=== PATIENT | female | born 1935 | race Caucasian/White ===

== ENCOUNTER → 2016-07-24 | Outpatient (CLI) | payer MEDICARE, BC ==
--- NOTE | 2016-07-24 13:49 | BD ---
EXAMINATION TYPE: MG DEXA axial skeleton. DATE OF EXAM: 07/24/2016 1:02 PM COMPARISON: NONE CLINICAL HISTORY: Height: 5FT 1 1/2 IN Weight: 142 FRAX RISK QUESTIONS: Alcohol (3 or more units per day): NO Family History (Parent hip fracture): NO Glucocorticoids (More than 3mos): NO (Ex: prednisone, prednisolone, methylprednisolone, dexamethasone, and hydrocortisone). History of Fracture in Adulthood: YES Secondary Osteoporosis: 1. Type 1 Diabetes: NO 2. Hyperthyroidism: NO 3. Menopause before 45: YES 4. Malnutrition: NO 5. Chronic liver disease: NO Rheumatoid Arthritis: NO Current Tobacco Use: NO RISK FACTORS HISTORY OF: Other Fractures since Age 50: YES COCCYX When: IN HER 70'S Family History of Osteoporosis: NO Active: YES Postmenopausal woman: AGE 45 MEDICATIONS: Additional Medications: CALCIUM, BLOOD PRESSURE MEDS, MEDS FOR CONGESTIVE HEART FAILURE, ANTI DEPRESS ANT, Additional History: EXAM MEASUREMENTS: Bone mineral densitometry was performed using the [employer] ([employer]) System. Bone mineral density as measured about the Lumbar spine is: ----- L1-L4(G/cm2): 0.990 T Score Values are as follows: ----- L2: -1.6 ----- L3: -2.0 ----- L4: -1.9 ----- L1-L4: -1.6 Bone mineral density has: Decreased -6.8% since study of: 2010 Bone mineral density about the R hip (g/cm2): 0.693 Bone mineral density about the L hip (g/cm2): 0.618 T Score values are as follows: -----R Neck: -2.5 -----L Neck: -3.0 -----R Intertrochanter: -2.2 -----L Intertrochanter: -2.5 Bone mineral density has: Decreased -16.8% since study of: 2010 IMPRESSION: Osteoporosis (T Score less than -2.5) as noted by T Score values at the There is increased fracture risk and therapy is usually indicated based on age. Re-Screen 1-2 years. LEFT FEMUR NOTE: T-SCORE=SD OF THE YOUNG ADULT MEAN.
--- NOTE | 2016-07-25 11:58 | MM ---
Reason for exam: screening (asymptomatic). Last mammogram was performed 4 years and 5 months ago. History: Patient is postmenopausal. Took hormonal contraceptives for 2 years beginning at age 30. Took estrogen for 8 months beginning at age 47. Took progesterone for 8 months beginning at age 47. Physical Findings: A clinical breast exam by your physician is recommended on an annual basis and results should be correlated with mammographic findings. MG 3D Screening Mammo W/Cad Bilateral CC and MLO view(s) were taken. Prior study comparison: March 04, 2012, bilateral digital screening mammo w/CAD. October 22, 2010, bilateral digital screening mammo w/CAD. October 20, 2009, bilateral digital screening mammogram. There are scattered fibroglandular densities. No significant changes when compared with prior studies. ASSESSMENT: Negative, BI-RAD 1 RECOMMENDATION: Routine screening mammogram of both breasts in 1 year.
== END | disposition home or self-care (01) ==
LOC: RADBDWWP 12:28
PROVIDERS: ATTEND Internal Medicine
DX: Z12.31 Encounter for screening mammogram for malignant neoplasm of breast (principal); M81.0 Age-related osteoporosis without current pathological fracture
CPT/HCPCS: 77080; 77063; G0202

== ENCOUNTER → 2016-08-14 | Outpatient (CLI) | payer MEDICARE, BC ==
[2016-08-14 10:19] LABS: CHCM 32.4; HCT 43.5 % (34.0-46.0); HDW 2.32; HGB 14.3 gm/dL (11.4-16.0); MCH 32.7 pg (25.0-35.0); MCV 99.3 fL (80.0-100.0); RBC 4.38 m/uL (3.80-5.40); RDW 13.4 % (11.5-15.5); WBC 5.2 k/uL (3.8-10.6)
[2016-08-14 10:43] LABS: ALT 49 U/L (9-52); AST 22 U/L (14-36); Alkaline Phosphatase 74 U/L (38-126); Anion Gap 9 mmol/L; Blood Urea Nitrogen 16 mg/dL (7-17); Carbon Dioxide 25 mmol/L (22-30); Chloride 108 mmol/L (98-107); Glucose 110 mg/dL (74-99); HDL Cholesterol 47 mg/dL (40-60); Non-African American GFR(MDRD) >60 (>60 ml/min/1.73 sqM); Potassium 3.9 mmol/L (3.5-5.1); Sodium 142 mmol/L (137-145); Total Bilirubin 0.7 mg/dL (0.2-1.3); Total Protein 6.8 g/dL (6.3-8.2); Triglycerides 301 mg/dL (<150)
[2016-08-14 10:57] LABS: Cholesterol 358 mg/dL (<200)
== END | disposition home or self-care (01) ==
LOC: LABWHC1 09:35
PROVIDERS: ATTEND Internal Medicine
DX: D64.9 Anemia, unspecified (principal); E03.9 Hypothyroidism, unspecified; B87.9 Myiasis, unspecified; R79.9 Abnormal finding of blood chemistry, unspecified
CPT/HCPCS: 36415; 80053; 80061; 84443; 85027

== ENCOUNTER 2017-01-08 17:17 | Emergency (ER) | payer MEDICARE, BC ==
--- NOTE | 2017-01-08 19:26 | ED ---
General Adult HPI - General Chief complaint: Recheck/Abnormal Lab/Rx Stated complaint: high blood pressure Time Seen by Provider: 01/08/17 18:48 Source: patient Mode of arrival: wheelchair Limitations: no limitations - History of Present Illness Initial comments: Patient is an 81-year-old female presents with a chief complaint of hypertension. Patient states that she has a history of hypertension and is followed by her primary care doctor for this. She was recently enrolled in home physical therapy, and today was her first day. They were supposed to come twice a day however multiple times today they were unable to hold her session because her blood pressure was over 180 systolic. Patient states that she is not having symptoms. Patient does however admit that the reason for physical therapy was because she is having episodes of lightheadedness, sweating. She states that she's been seen by her primary care physician for this already. Patient currently denies any symptomatology. Initial blood pressure is 144/88, however repeat at bedside is 197/90. - Related Data Home Medications Medication Instructions Recorded Confirmed ALPRAZolam [ALPRAZolam] 0.25 mg PO TID PRN 09/24/13 08/31/14 Ascorbic Acid [Vitamin C] 500 mg PO DAILY 09/24/13 08/31/14 Aspirin EC [Ecotrin] 81 mg PO DAILY 09/24/13 08/31/14 Multivitamins, Thera [Multivitamin] 1 each PO DAILY 09/24/13 08/31/14 Potassium Chloride [K-Tab] 10 meq PO BID 09/24/13 08/31/14 Spironolactone [Aldactone] 25 mg PO DAILY 09/24/13 08/31/14 Sertraline [Zoloft] 100 mg PO DAILY 02/27/14 08/31/14 amLODIPine [Norvasc] 5 mg PO BID 02/27/14 08/31/14 Losartan Potassium [Losartan 50 mg PO [facility] 08/17/14 08/31/14 Potassium] Temazepam [Temazepam] 1 tab PO 08/17/14 08/31/14 Cholecalciferol [Vitamin D3] 1,000 unit PO DAILY 08/19/14 08/24/14 Pravastatin Sodium [Pravachol] 80 mg PO 08/19/14 08/31/14 rOPINIRole HCL [Requip] 1 mg PO 08/19/14 08/31/14 traZODone HCL 300 mg PO HS 08/19/14 08/31/14 Allergies Allergy/AdvReac Type Severity Reaction Status Date / Time Sulfa (Sulfonamide Allergy Unknown Verified 01/08/17 17:39 Antibiotics) zolpidem tartrate AdvReac Confusion Verified 01/08/17 17:39 [From Bernard] Review of Systems ROS Statement: Those systems with pertinent positive or pertinent negative responses have been documented in the HPI. ROS Other: All systems not noted in ROS Statement are negative. Constitutional: Denies: fever Eyes: Denies: vision change ENT: Denies: congestion Respiratory: Denies: cough Cardiovascular: Denies: chest pain Endocrine: Reports: fatigue Gastrointestinal: Denies: abdominal pain, nausea, vomiting Genitourinary: Denies: dysuria Musculoskeletal: Denies: arthralgia Skin: Denies: rash Neurological: Denies: headache Past Medical History Past Medical History: Heart Failure, CVA/TIA, Hyperlipidemia, Hypertension, Thyroid Disorder Additional Past Medical History / Comment(s): SEPSIS, CDIFF, SHINGLES in 2008, FX TAILBONE,CHF, HYPERCHOLESTREMIA History of Any Multi-Drug Resistant Organisms: C-DIFF Date of last positivie culture/infection: 2009 MDRO Source:: STOOL Past Surgical History: Appendectomy, Cholecystectomy, Hysterectomy Additional Past Surgical History / Comment(s): CATARACTS, colonoscopy Past Anesthesia/Blood Transfusion Reactions: No Reported Reaction Past Psychological History: Anxiety, Depression Smoking Status: Never smoker Past Alcohol Use History: None Reported Past Drug Use History: None Reported - Past Family History Father Family Medical History: Coronary Artery Disease (CAD), Myocardial Infarction (ID ) Son(s) Family Medical History: Cancer General Exam Limitations: no limitations General appearance: alert, in no apparent distress Head exam: Present: atraumatic, normocephalic Eye exam: Present: normal appearance, PERRL ENT exam: Present: normal exam, mucous membranes moist Respiratory exam: Present: normal lung sounds bilaterally Cardiovascular Exam: Present: regular rate, normal rhythm, normal heart sounds GI/Abdominal exam: Present: soft. Absent: distended, tenderness Rectal exam: Present: deferred Extremities exam: Present: normal inspection Back exam: Present: normal inspection Neurological exam: Present: alert, oriented X3, CN II-XII intact Psychiatric exam: Present: normal affect, normal mood Course Vital Signs 01/08/17 01/08/17 17:36 20:27 Temperature 99.0 F Pulse Rate 75 Respiratory 20 Rate Blood Pressure 142/88 172/105 O2 Sat by Pulse 99 Oximetry Medical Decision Making - Medical Decision Making Patient presents for evaluation of hypertension. She was sent at the request of her physical therapist. Patient is asymptomatic currently. Blood pressure at bedside is 197/90, patient states that she has not had thorough lab workup for her episodes of shaking and sweatiness, therefore she will have basic and cardiac workup here today. 8:39 PM Lab evaluation of this patient including cardiac profile is within normal limits. There is no evidence of end organ damage. Currently, the patient is still hypertensive however her blood pressures improved to 174 over 90s. She was given a 5 mg dose of Norvasc. I discussed the plan with her, I would like to increase her Norvasc from 5 mg to 10 mg daily and have her follow-up with her primary care doctor and one or 2 days. Patient and her family are agreeable with this plan. I will recheck her blood pressure 1 more time however if she is still asymptomatic, the patient will be discharged home. All of the patient's questions are answered to the best of my ability, she is stable for discharge. - Lab Data Result diagrams: 01/08/17 19:30 01/08/17 19:30 Lab Results 01/08/17 01/08/17 01/08/17 Range/Units 19:30 19:30 19:30 WBC 5.5 (3.8-10.6) k/uL RBC 4.76 (3.80-5.40) m/uL Hgb 15.0 (11.4-16.0) gm/dL Hct 46.2 H (34.0-46.0) % MCV 97.0 (80.0-100.0) fL MCH 31.6 (25.0-35.0) pg MCHC 32.6 (31.0-37.0) g/dL RDW 13.1 (11.5-15.5) % Plt Count 196 (150-450) k/uL Neutrophils % 65 % Lymphocytes % 23 % Monocytes % 7 % Eosinophils % 2 % Basophils % 1 % Neutrophils # 3.6 (1.3-7.7) k/uL Lymphocytes # 1.3 (1.0-4.8) k/uL Monocytes # 0.4 (0-1.0) k/uL Eosinophils # 0.1 (0-0.7) k/uL Basophils # 0.1 (0-0.2) k/uL Sodium 139 (137-145) mmol/L Potassium 4.0 (3.5-5.1) mmol/L Chloride 104 (98-107) mmol/L Carbon Dioxide 24 (22-30) mmol/L Anion Gap 11 mmol/L BUN 13 (7-17) mg/dL Creatinine 0.60 (0.52-1.04) mg/dL Est GFR (MDRD) Af Amer >60 (>60 ml/min/1.73 sqM) Est GFR (MDRD) Non-Af >60 (>60 ml/min/1.73 sqM) Glucose 119 H (74-99) mg/dL Calcium 9.2 (8.4-10.2) mg/dL Troponin I (0.000-0.034) ng/mL NT-Pro-B Natriuret Pep 168 pg/mL 01/08/17 Range/Units 19:30 WBC (3.8-10.6) k/uL RBC (3.80-5.40) m/uL Hgb (11.4-16.0) gm/dL Hct (34.0-46.0) % MCV (80.0-100.0) fL MCH (25.0-35.0) pg MCHC (31.0-37.0) g/dL RDW (11.5-15.5) % Plt Count (150-450) k/uL Neutrophils % % Lymphocytes % % Monocytes % % Eosinophils % % Basophils % % Neutrophils # (1.3-7.7) k/uL Lymphocytes # (1.0-4.8) k/uL Monocytes # (0-1.0) k/uL Eosinophils # (0-0.7) k/uL Basophils # (0-0.2) k/uL Sodium (137-145) mmol/L Potassium (3.5-5.1) mmol/L Chloride (98-107) mmol/L Carbon Dioxide (22-30) mmol/L Anion Gap mmol/L BUN (7-17) mg/dL Creatinine (0.52-1.04) mg/dL Est GFR (MDRD) Af Amer (>60 ml/min/1.73 sqM) Est GFR (MDRD) Non-Af (>60 ml/min/1.73 sqM) Glucose (74-99) mg/dL Calcium (8.4-10.2) mg/dL Troponin I <0.012 (0.000-0.034) ng/mL NT-Pro-B Natriuret Pep pg/mL Disposition Clinical Impression: Hypertension Disposition: HOME SELF-CARE Condition: Good Instructions: Hypertension (ED) Additional Instructions: Increase your home dose of Norvasc from 5 mg to 10 mg daily. Follow-up with your primary care physician in one to 2 days. Referrals: Bj Mo MD [Primary Care Provider] - 1-2 days
[2017-01-08 19:42] LABS: Basophils # (A) 0.1 k/uL (0-0.2); Basophils % (A) 1 %; CHCM 32.1; Eosinophils # (A) 0.1 k/uL (0-0.7); Eosinophils % (A) 2 %; HCT 46.2 % (34.0-46.0); Luc # (Auto) 0.11; Luc % (Auto) 2; Lymphocytes # (A) 1.3 k/uL (1.0-4.8); Lymphocytes % (A) 23 %; MCH 31.6 pg (25.0-35.0); MCHC 32.6 g/dL (31.0-37.0); Mean Platelet Volume 9.4; Monocytes # (A) 0.4 k/uL (0-1.0); Monocytes % (A) 7 %; Neutrophils # (A) 3.6 k/uL (1.3-7.7); Neutrophils % (A) 65 %; RBC 4.76 m/uL (3.80-5.40); RDW 13.1 % (11.5-15.5); WBC 5.5 k/uL (3.8-10.6); WBC (Perox) 5.51
[2017-01-08 20:01] LABS: Anion Gap 11 mmol/L; Blood Urea Nitrogen 13 mg/dL (7-17); Calcium 9.2 mg/dL (8.4-10.2); Carbon Dioxide 24 mmol/L (22-30); Chloride 104 mmol/L (98-107); Glucose 119 mg/dL (74-99); Non-African American GFR(MDRD) >60 (>60 ml/min/1.73 sqM); Sodium 139 mmol/L (137-145)
[2017-01-08] MEDS ORDERED: amLODIPine 5 MG TAB PO STA (20:03)
[2017-01-08 21:43] VITALS: BP 198/90; PULSE 87; RESP 16; TEMP 98.3
== END 2017-01-08 21:41 | disposition home or self-care (01) ==
LOC: EC 17:17
DX: I10 Essential (primary) hypertension (principal); R42 Dizziness and giddiness; R61 Generalized hyperhidrosis; I50.9 Heart failure, unspecified; E78.5 Hyperlipidemia, unspecified; E07.9 Disorder of thyroid, unspecified; Z86.73 Personal history of transient ischemic attack (TIA), and cerebral infarction without residual deficits; F32.9 Major depressive disorder, single episode, unspecified; F41.9 Anxiety disorder, unspecified; Z79.82 Long term (current) use of aspirin; Z79.899 Other long term (current) drug therapy; Z88.2 Allergy status to sulfonamides; Z88.8 Allergy status to other drugs, medicaments and biological substances
CPT/HCPCS: 36415; 80048; 83880; 84484; 85025; 99283

== ENCOUNTER → 2017-08-21 | Outpatient (CLI) | payer MEDICARE, BC ==
[2017-08-21 10:28] LABS: HCT 40.6 % (34.0-46.0); HGB 13.3 gm/dL (11.4-16.0); MCH 31.1 pg (25.0-35.0); MCHC 32.7 g/dL (31.0-37.0); MCV 95.1 fL (80.0-100.0); Mean Platelet Volume 8.7; Platelet Count 241 k/uL (150-450); RBC 4.27 m/uL (3.80-5.40); RDW 13.3 % (11.5-15.5); WBC 8.8 k/uL (3.8-10.6)
[2017-08-21 10:58] LABS: Albumin 3.9 g/dL (3.5-5.0); Phosphorus 4.1 mg/dL (2.5-4.5); Potassium 4.5 mmol/L (3.5-5.1); Total Bilirubin 0.3 mg/dL (0.2-1.3); Total Protein 6.2 g/dL (6.3-8.2)
[2017-08-21 16:13] LABS: Iron Saturation 17.58 (12.00-45.00)
[2017-08-21 16:15] LABS: Parathyroid Hormone Intact 49.1 pg/mL (14.0-72.0)
[2017-08-21 16:23] LABS: Vitamin D 25 Hydroxy 39.4 ng/mL (30.0-100.0)
[2017-08-21 16:25] LABS: Folate, Serum 11.3 ng/mL
[2017-08-21 18:49] LABS: Hemoglobin A1C 5.7 % (4.0-6.0)
== END | disposition home or self-care (01) ==
LOC: LABWHC1 09:11
PROVIDERS: ATTEND Nurse Practitioner Adult Health
DX: E78.5 Hyperlipidemia, unspecified (principal); I11.9 Hypertensive heart disease without heart failure; K21.9 Gastro-esophageal reflux disease without esophagitis; R53.83 Other fatigue; Z90.89 Acquired absence of other organs
CPT/HCPCS: 36415; 80053; 80061; 82306; 82607; 82746; 83036; 83540; 83550; 83735; 83970; 84100; 84443; 85027

== ENCOUNTER 2017-08-26 17:52 | Observation (INO) | payer MEDICARE, BC ==
--- NOTE | 2017-08-26 20:06 | ED ---
General Adult HPI - General Chief complaint: Neuro Symptoms/Deficit Stated complaint: Possible TIA Time Seen by Provider: 08/26/17 19:29 Source: patient, RN notes reviewed, old records reviewed Mode of arrival: wheelchair Limitations: no limitations - History of Present Illness Initial comments: 81-year-old female presenting for evaluation of confusion. Patient states that earlier in the day she had trouble remembering phone numbers and names of her children. She states she had trouble finding words at this time. This began around noon today. She was aware of this deficit and this was new for her. She denied any weakness or numbness or tingling. No vision changes. No headache. No chest pain or shortness of breath. No abdominal pain nausea vomiting. No recent change in medications. No dysuria or hematuria. - Related Data Home Medications Medication Instructions Recorded Confirmed Aspirin EC [Ecotrin] 81 mg PO DAILY 09/24/13 08/26/17 amLODIPine [Norvasc] 5 mg PO HS 02/27/14 08/26/17 Losartan Potassium [Losartan 25 mg PO QAM 08/17/14 08/26/17 Potassium] Pravastatin Sodium [Pravachol] 80 mg PO HS 08/19/14 08/26/17 rOPINIRole HCL [Requip] 1 mg PO HS 08/19/14 08/26/17 HYDROcodone/APAP 7.5-325MG [[place] 1 tab PO Q4H PRN 04/01/17 08/26/17 7.5-325] Morphine Sulfate ER [Ms Contin 15 mg PO BID 04/01/17 08/26/17 15Mg] traZODone HCL 300 mg PO HS 04/01/17 08/26/17 ALPRAZolam [Xanax] 0.5 mg PO HS PRN 08/26/17 08/26/17 DULoxetine HCL [Cymbalta] 60 mg PO DAILY 08/26/17 08/26/17 Furosemide [Lasix] 20 mg PO MOWEFR 08/26/17 08/26/17 Spironolactone 50 mg PO DAILY 08/26/17 08/26/17 Allergies Allergy/AdvReac Type Severity Reaction Status Date / Time Sulfa (Sulfonamide Allergy Unknown Verified 08/26/17 19:40 Antibiotics) zolpidem tartrate AdvReac Confusion Verified 05/22/18 19:40 [From Ambien] Review of Systems ROS Statement: Those systems with pertinent positive or pertinent negative responses have been documented in the HPI. ROS Other: All systems not noted in ROS Statement are negative. Past Medical History Past Medical History: Heart Failure, CVA/TIA, Hyperlipidemia, Hypertension, Thyroid Disorder Additional Past Medical History / Comment(s): SEPSIS, C DIFF 2009, SHINGLES in 2008, FX TAILBONE,CHF, "leakage of urine", past migraines, varicose veis, hiatal hernia, diverticular disease.anx/depression.recieved a flu vaccine this year -not sure of date and office closed at time of this admit. History of Any Multi-Drug Resistant Organisms: None Reported Date of last positivie culture/infection: 2009 MDRO Source:: STOOL Past Surgical History: Adenoidectomy, Appendectomy, Cholecystectomy, Heart Catheterization, Hysterectomy, Tonsillectomy Additional Past Surgical History / Comment(s): slick cataracts. (has total 3 sx on lt eye), colonoscopy/egd, heart cath 1996. Past Anesthesia/Blood Transfusion Reactions: No Reported Reaction Past Psychological History: Anxiety, Depression Smoking Status: Never smoker - Past Family History Mother Family Medical History: Diabetes Mellitus Additional Family Medical History / Comment(s): brain aneurysm Father Family Medical History: Coronary Artery Disease (CAD), Myocardial Infarction (HI ) Son(s) Family Medical History: Cancer General Exam Limitations: no limitations General appearance: alert, in no apparent distress Head exam: Present: atraumatic, normocephalic Eye exam: Present: normal appearance, PERRL, EOMI ENT exam: Present: normal exam Neck exam: Present: normal inspection. Absent: tenderness, meningismus Respiratory exam: Present: normal lung sounds bilaterally. Absent: respiratory distress, wheezes Cardiovascular Exam: Present: regular rate, normal rhythm GI/Abdominal exam: Present: soft. Absent: distended, tenderness, guarding Extremities exam: Present: normal inspection, full ROM Neurological exam: Present: alert, oriented X3, CN II-XII intact. Absent: motor sensory deficit (NIH 0) Psychiatric exam: Present: normal affect, normal mood Skin exam: Present: warm, dry, intact. Absent: cyanosis, diaphoretic Course Vital Signs 08/26/17 08/26/17 08/26/17 18:18 19:40 19:55 Temperature 100.3 F H Pulse Rate 94 92 92 Respiratory 18 18 18 Rate Blood Pressure 148/75 117/74 137/67 O2 Sat by Pulse 92 L 94 L 94 L Oximetry 08/26/17 08/26/17 08/26/17 20:10 20:25 20:55 Temperature Pulse Rate 92 88 86 Respiratory 18 18 18 Rate Blood Pressure 135/69 131/74 142/69 O2 Sat by Pulse 93 L 95 Oximetry 08/26/17 21:25 Temperature Pulse Rate 85 Respiratory 18 Rate Blood Pressure 141/74 O2 Sat by Pulse 94 L Oximetry EKG Findings - EKG Comments: EKG Findings:: EKG: Normal sinus rhythm, rate of 90, NJ interval 166, QRS duration 84, QTC [address] segment elevation or depression Medical Decision Making - Medical Decision Making 81-year-old female presenting with episode of confusion and word finding difficulty. Patient's neurologic exam is nonfocal on initial presentation. Symptoms resolved. Head CT obtained, is negative for acute intracranial pathology, no intracranial hemorrhage. Chest x-ray focal airspace disease. CBC CMP are unremarkable. Urinalysis shows small leukocyte esterase and 5 WBCs. This does not explain her confusion. She will be admitted for concern of TIA. Neurology placed on consult. Case discussed with Dr. Vasquez will accept admission. - Lab Data Result diagrams: 08/26/17 20:30 08/26/17 20:30 Lab Results 08/26/17 08/26/17 08/26/17 Range/Units 20:30 20:30 20:30 WBC 8.9 (3.8-10.6) k/uL RBC 4.52 (3.80-5.40) m/uL Hgb 13.8 (11.4-16.0) gm/dL Hct 42.1 (34.0-46.0) % MCV 93.2 (80.0-100.0) fL MCH 30.6 (25.0-35.0) pg MCHC 32.8 (31.0-37.0) g/dL RDW 13.2 (11.5-15.5) % Plt Count 265 (150-450) k/uL Neutrophils % 72 % Lymphocytes % 19 % Monocytes % 5 % Eosinophils % 2 % Basophils % 1 % Neutrophils # 6.4 (1.3-7.7) k/uL Lymphocytes # 1.7 (1.0-4.8) k/uL Monocytes # 0.4 (0-1.0) k/uL Eosinophils # 0.2 (0-0.7) k/uL Basophils # 0.1 (0-0.2) k/uL PT (9.0-12.0) sec INR (<1.2) APTT (22.0-30.0) sec Sodium 140 (137-145) mmol/L Potassium 4.3 (3.5-5.1) mmol/L Chloride 99 (98-107) mmol/L Carbon Dioxide 27 (22-30) mmol/L Anion Gap 14 mmol/L BUN 16 (7-17) mg/dL Creatinine 0.80 (0.52-1.04) mg/dL Est GFR (CKD-EPI)AfAm 80 (>60 ml/min/1.73 sqM) Est GFR (CKD-EPI)NonAf 70 (>60 ml/min/1.73 sqM) Glucose 119 H (74-99) mg/dL Plasma Lactic Acid Yefri (0.7-2.0) mmol/L Calcium 9.5 (8.4-10.2) mg/dL Total Bilirubin 0.5 (0.2-1.3) mg/dL AST 34 (14-36) U/L ALT 29 (9-52) U/L Alkaline Phosphatase 78 (38-126) U/L Total Creatine Kinase 45 (30-135) U/L CK-MB (CK-2) <0.2 (0.0-2.4) ng/mL CK-MB (CK-2) Rel Index Troponin I <0.012 (0.000-0.034) ng/mL Total Protein 6.8 (6.3-8.2) g/dL Albumin 4.2 (3.5-5.0) g/dL Urine Color Urine Appearance (Clear) Urine pH (5.0-8.0) Ur Specific Catarina (1.001-1.035) Urine Protein (Negative) Urine Glucose (UA) (Negative) Urine Ketones (Negative) Urine Blood (Negative) Urine Nitrite (Negative) Urine Bilirubin (Negative) Urine Urobilinogen (<2.0) mg/dL Ur Leukocyte Esterase (Negative) Urine RBC (0-5) /hpf Urine WBC (0-5) /hpf Ur Squamous Epith Cells (0-4) /hpf Urine Mucus (None) /hpf 08/26/17 08/26/17 08/26/17 Range/Units 20:30 20:30 21:00 WBC (3.8-10.6) k/uL RBC (3.80-5.40) m/uL Hgb (11.4-16.0) gm/dL Hct (34.0-46.0) % MCV (80.0-100.0) fL MCH (25.0-35.0) pg MCHC (31.0-37.0) g/dL RDW (11.5-15.5) % Plt Count (150-450) k/uL Neutrophils % % Lymphocytes % % Monocytes % % Eosinophils % % Basophils % % Neutrophils # (1.3-7.7) k/uL Lymphocytes # (1.0-4.8) k/uL Monocytes # (0-1.0) k/uL Eosinophils # (0-0.7) k/uL Basophils # (0-0.2) k/uL PT 9.8 (9.0-12.0) sec INR 1.0 (<1.2) APTT 23.7 (22.0-30.0) sec Sodium (137-145) mmol/L Potassium (3.5-5.1) mmol/L Chloride (98-107) mmol/L Carbon Dioxide (22-30) mmol/L Anion Gap mmol/L BUN (7-17) mg/dL Creatinine (0.52-1.04) mg/dL Est GFR (CKD-EPI)AfAm (>60 ml/min/1.73 sqM) Est GFR (CKD-EPI)NonAf (>60 ml/min/1.73 sqM) Glucose (74-99) mg/dL Plasma Lactic Acid Yefri 1.1 (0.7-2.0) mmol/L Calcium (8.4-10.2) mg/dL Total Bilirubin (0.2-1.3) mg/dL AST (14-36) U/L ALT (9-52) U/L Alkaline Phosphatase (38-126) U/L Total Creatine Kinase (30-135) U/L CK-MB (CK-2) (0.0-2.4) ng/mL CK-MB (CK-2) Rel Index Troponin I (0.000-0.034) ng/mL Total Protein (6.3-8.2) g/dL Albumin (3.5-5.0) g/dL Urine Color Yellow Urine Appearance Clear (Clear) Urine pH 7.0 (5.0-8.0) Ur Specific [place] 1.013 (1.001-1.035) Urine Protein Negative (Negative) Urine Glucose (UA) Negative (Negative) Urine Ketones Negative (Negative) Urine Blood Negative (Negative) Urine Nitrite Negative (Negative) Urine Bilirubin Negative (Negative) Urine Urobilinogen <2.0 (<2.0) mg/dL Ur Leukocyte Esterase Small H (Negative) Urine RBC 1 (0-5) /hpf Urine WBC 5 (0-5) /hpf Ur Squamous Epith Cells 1 (0-4) /hpf Urine Mucus Rare H (None) /hpf Disposition Clinical Impression: Altered mental status, TIA (transient ischemic attack) Disposition: ADMITTED IP TO THIS [facility] Condition: Stable Is patient prescribed a controlled substance at d/c from ED?: No Referrals: Roxana Victor MD [Primary Care Provider] - 1-2 days Decision to Admit Reason: Admit from EC Decision Date: 08/26/17 Decision Time: 22:30
--- NOTE | 2017-08-26 20:28 | XR ---
EXAMINATION TYPE: XR chest 2V DATE OF EXAM: 08/26/2017 COMPARISON: 04/01/2017 HISTORY: Altered mental status TECHNIQUE: Frontal and lateral views of the chest are obtained. FINDINGS: There is no heart failure nor confluent pneumonic infiltrate. Thoracic aorta is atheromato us. There are chest leads. Diaphragm is normal. There is osteopenia. IMPRESSION: Atheromatous aorta. No active cardiac pulmonary disease. Improved inspiration compared t o old exam.
--- NOTE | 2017-08-26 20:30 | CT ---
EXAMINATION TYPE: CT brain wo con DATE OF EXAM: 08/26/2017 COMPARISON: 04/01/2017 HISTORY: Possible TIA. CT DLP: 1100 mGycm Automated exposure control for dose reduction was used. FINDINGS: There is cerebral cortical atrophy. There is no mass effect nor midline shift. There is no sign of in tracranial hemorrhage. There is no evidence of cerebral edema. The calvarium is intact. IMPRESSION: CEREBRAL ATROPHY. NO ACUTE INTRACRANIAL ABNORMALITY. NO CHANGE.
[2017-08-26 20:49] LABS: Basophils # (A) 0.1 k/uL (0-0.2); Basophils % (A) 1 %; Eosinophils # (A) 0.2 k/uL (0-0.7); Eosinophils % (A) 2 %; HCT 42.1 % (34.0-46.0); HGB 13.8 gm/dL (11.4-16.0); Lymphocytes # (A) 1.7 k/uL (1.0-4.8); Lymphocytes % (A) 19 %; MCH 30.6 pg (25.0-35.0); MCHC 32.8 g/dL (31.0-37.0); MCV 93.2 fL (80.0-100.0); Mean Platelet Volume 9.1; Monocytes # (A) 0.4 k/uL (0-1.0); Monocytes % (A) 5 %; Neutrophils # (A) 6.4 k/uL (1.3-7.7); Neutrophils % (A) 72 %; Platelet Count 265 k/uL (150-450); RBC 4.52 m/uL (3.80-5.40); RDW 13.2 % (11.5-15.5); WBC 8.9 k/uL (3.8-10.6)
[2017-08-26 20:56] LABS: Albumin 4.2 g/dL (3.5-5.0); Calcium 9.5 mg/dL (8.4-10.2); Creatine Kinase 45 U/L (30-135); Potassium 4.3 mmol/L (3.5-5.1); Total Bilirubin 0.5 mg/dL (0.2-1.3); Total Protein 6.8 g/dL (6.3-8.2)
[2017-08-26 21:09] LABS: Creatine Kinase MB <0.2 ng/mL (0.0-2.4); Troponin I <0.012 ng/mL (0.000-0.034)
[2017-08-26 21:22] LABS: Appearance,Urine Clear (Clear); Bilirubin,Urine Negative (Negative); Blood,Urine Negative (Negative); Color,Urine Yellow; Glucose,Urine (UA) Negative (Negative); Ketones,Urine Negative (Negative); Leukocyte Esterase,Urine Small (Negative); Mucus,Urine Rare /hpf; Nitrite,Urine Negative (Negative); Protein,Urine Negative (Negative); RBC,Urine 1 /hpf (0-5); Specific Gravity,Urine 1.013 (1.001-1.035); Squamous Epithelial Cell,Urine 1 /hpf (0-4); Urobilinogen,Urine <2.0 mg/dL (<2.0); WBC,Urine 5 /hpf (0-5)
[2017-08-26 21:32] LABS: Partial Thromboplastin Time 23.7 sec (22.0-30.0); Prothrombin Time 9.8 sec (9.0-12.0)
[2017-08-26] MEDS ORDERED: ASPIRIN 325 MG TAB PO STA (22:26)
[2017-08-27 03:50] LABS: Cholesterol 193 mg/dL (<200); HDL Cholesterol 49 mg/dL (40-60); LDL Cholesterol,Calculated 100 mg/dL (0-99); Triglycerides 219 mg/dL (<150)
[2017-08-27] MEDS ORDERED: FUROSEMIDE 20 MG TAB PO SCH (06:30)
--- NOTE | 2017-08-27 06:36 | P.HPIM ---
History of Present Illness H&P Date: 08/26/17 Chief Complaint: confusion 81 year old female with history of CVA/TIA, CHF, HTN. presented due to new symptoms of inability to find words and remember common things like phone numbers and names, this lasted for few hours around noon and then resolved completely. She denies any associated head injury, headaches, focal neurologic deficits like any weakness or numbness. she was concerned regarding a stroke and decided to come seeking medical advice. currently she feels completely fine. She denies any nausea, vomiting, SOB, coughing, chest pain, leg swelling, or any GI bleeding. Patient reports similar event back in March 2017, carotid ultrasound done at that time showed no significant stenosis patient symptoms resolved on their own. however she does not recall this event Review of Systems Pertinent positives and negatives as per HPI, all other systems were reviewed and negative. Past Medical History Past Medical History: Heart Failure, CVA/TIA, Hyperlipidemia, Hypertension, Thyroid Disorder Additional Past Medical History / Comment(s): SEPSIS, C DIFF 2009, SHINGLES in 2008, FX TAILBONE,CHF, "leakage of urine", past migraines, varicose veis, hiatal hernia, diverticular disease.anx/depression.recieved a flu vaccine this year -not sure of date and office closed at time of this admit. History of Any Multi-Drug Resistant Organisms: None Reported Date of last positivie culture/infection: 2009 MDRO Source:: STOOL Past Surgical History: Adenoidectomy, Appendectomy, Cholecystectomy, Heart Catheterization, Hysterectomy, Tonsillectomy Additional Past Surgical History / Comment(s): slick cataracts. (has total 3 sx on lt eye), colonoscopy/egd, heart cath 1996. Past Anesthesia/Blood Transfusion Reactions: No Reported Reaction Past Psychological History: Anxiety, Depression Smoking Status: Never smoker - Past Family History Mother Family Medical History: Diabetes Mellitus Additional Family Medical History / Comment(s): brain aneurysm Father Family Medical History: Coronary Artery Disease (CAD), Myocardial Infarction ([place] ) Son(s) Family Medical History: Cancer Medications and Allergies Home Medications Medication Instructions Recorded Confirmed Type Aspirin EC [Ecotrin] 81 mg PO DAILY 09/24/13 08/26/17 History amLODIPine [Norvasc] 5 mg PO HS 02/27/14 08/26/17 History Losartan Potassium [Losartan 25 mg PO QAM 08/17/14 08/26/17 History Potassium] Pravastatin Sodium [Pravachol] 80 mg PO HS 08/19/14 08/26/17 History rOPINIRole HCL [Requip] 1 mg PO HS 08/19/14 08/26/17 History HYDROcodone/APAP 7.5-325MG [[place] 1 tab PO Q4H PRN 04/01/17 08/26/17 History 7.5-325] Morphine Sulfate ER [Ms Contin 15 mg PO BID 04/01/17 08/26/17 History 15Mg] traZODone HCL 300 mg PO HS 04/01/17 08/26/17 History ALPRAZolam [Xanax] 0.5 mg PO HS PRN 08/26/17 08/26/17 History DULoxetine HCL [Cymbalta] 60 mg PO DAILY 08/26/17 08/26/17 History Furosemide [Lasix] 20 mg PO MOWEFR 08/26/17 08/26/17 History Spironolactone 50 mg PO DAILY 08/26/17 08/26/17 History Allergies Allergy/AdvReac Type Severity Reaction Status Date / Time Sulfa (Sulfonamide Allergy Unknown Verified 08/26/17 19:40 Antibiotics) zolpidem tartrate AdvReac Confusion Verified 08/26/17 19:40 [From Bernard] Physical Exam Vitals: Vital Signs Temp Pulse Pulse Resp BP BP Pulse Ox 08/27/17 03:55 74 16 112/59 93 L 08/27/17 01:55 72 16 131/57 97 08/27/17 00:55 99.1 F 76 16 119/56 95 08/26/17 23:55 74 18 111/63 96 08/26/17 23:27 80 16 108/56 95 08/26/17 22:55 99.1 F 74 18 108/56 95 08/26/17 21:55 82 18 132/74 94 L 08/26/17 21:25 85 18 141/74 94 L 08/26/17 20:55 86 18 142/69 95 08/26/17 20:25 88 18 131/74 93 L 08/26/17 20:10 92 18 135/69 08/26/17 19:55 92 18 137/67 94 L 08/26/17 19:40 92 18 117/74 94 L 08/26/17 18:18 100.3 F H 94 18 148/75 92 L Intake and Output 08/26/17 08/26/17 08/27/17 14:59 22:59 06:59 Other: Weight 68.039 kg Constitutional: No acute distress, conversant, pleasant Eyes: Anicteric sclerae, moist conjunctiva, no lid-lag Pupils equal round reactive to light ENMT: NC/AT Oropharynx clear, no erythema, or exudates Neck: Supple, FROM, no masses, or JVD No carotid bruits No thyromegaly Lungs: Clear to auscultation Clear to percussion Normal respiratory effort, no accessory muscle use Cardiovascular: Heart regular in rate and rhythm, No murmurs, gallops, or rubs No peripheral edema Abdominal: Soft Nontender, no guarding, rebound or rigidity Abdomen moving with respiration Normoactive bowel sounds No hepatomegaly, No splenomegaly No palpable mass No abdominal wall hernia noted Skin: Normal temperature, tone, texture, turgor No induration No subcutaneous nodules No rash, lesions No ulcers Extremities: No digital cyanosis No clubbing Pedal pulses intact and symmetrical Radial pulses intact and symmetrical No calf tenderness Psychiatric: Alert and oriented to person, place and time Appropriate affect fair judgment Neuro Muscles Strength 4/5 in all 4 extremities Sensation to light touch grossly present throughout Finger-nose intact Cranial nerves II-XII grossly intact No focal sensory deficits Lymphatics: no palpable cervical or supraclavicular , or inguinal lymph nodes Results CBC & Chem 7: 08/26/17 20:30 08/26/17 20:30 Labs: Abnormal Lab Results - Last 24 Hours (Table) 08/26/17 08/26/17 08/26/17 Range/Units 20:30 20:30 21:00 Glucose 119 H (74-99) mg/dL Triglycerides 219 H (<150) mg/dL LDL Cholesterol, Calc 100 H (0-99) mg/dL Ur Leukocyte Esterase Small H (Negative) Urine Mucus Rare H (None) /hpf Microbiology - Last 24 Hours (Table) 08/26/17 21:00 Urine Culture - Preliminary Urine,Voided Assessment and Plan Assessment: 81-year-old lady with history of CVA presented due to confusion and difficulty remembering, things. Patient admitted for workup of TIA Plan: #TIA with history of CVA Continue aspirin and statin CT of the head was negative Check carotid ultrasound Check 2-D echocardiogram Check vitamin B12 Check TSH Neurochecks Neurology consult #Hypertension currently controlled Continue home medications #CHF currently compensated Continue home medications #DVT prophylaxis Heparin subcu 3 times a day Preformed a thorough record review from recent hospitalization from March 2017 where she presented for garbled speech and workup did not reveal anything of significance including carotid ultrasound which showed no significant stenosis Surrogate decision-maker: patients daughter CODE STATUS:full code Discussed with: Patient, ER, RN Anticipated discharge: 48-[address]: home A total of 50 minutes was spent on the care of this complex patient more than 50 % of the time was spent in counseling and care coordination.
[2017-08-27] MEDS ORDERED: NALOXONE 0.4 MG/ML 1 ML VIAL IV PRN (06:57)
--- NOTE | 2017-08-27 08:27 | US ---
EXAMINATION TYPE: US carotid duplex BILAT DATE OF EXAM: 08/27/2017 COMPARISON: US 04/01/2017 CLINICAL HISTORY: Stenosis. Patient states she couldn't think clearly EXAM MEASUREMENTS: RIGHT: Peak Systolic Velocity (PSV) cm/sec ----- Right CCA: 52.6 ----- Right ICA: 90.5 ----- Right ECA: 64.6 ICA/CCA ratio: 1.7 RIGHT: End Diastole cm/sec ----- Right CCA: 8.7 ----- Right ICA: 23.2 ----- Right ECA: 6.3 LEFT: Peak Systolic Velocity (PSV) cm/sec ----- Left CCA: 54.1 ----- Left ICA: 76.2 ----- Left ECA: 48.3 ICA/CCA ratio: 1.4 LEFT: End Diastole cm/sec ----- Left CCA: 10.4 ----- Left ICA: 28.3 ----- Left ECA: 7.6 VERTEBRALS (direction of flow): Right Vertebral: Antegrade Left Vertebral: Antegrade Rhythm: Normal Tortuous vessels bilaterally. Mild amount of plaque visualized, no elevated velocities Grayscale, color Doppler, spectral Doppler imaging performed of the carotid arteries. Waveform analys is does not show significant stenosis of the proximal internal carotid arteries. IMPRESSION: No hemodynamic significant stenosis of the proximal internal carotid arteries bilaterall y by Doppler criteria, an indirect measurement of carotid stenosis
[2017-08-27 09:03] VITALS: RESP 16
[2017-08-27 09:11] VITALS: BMI 27.3
[2017-08-27] MEDS: DULoxetine HCL 60 MG CAPSULE.DR PO SCH (10:52)
[2017-08-27] MEDS: HEPARIN SODIUM,PORCINE 5,000 UNIT/ML 1 ML VIAL SQ SCH ×3 (10:52→23:31)
[2017-08-27] MEDS: LOSARTAN 25 MG TAB PO SCH (10:52)
[2017-08-27] MEDS: ASPIRIN 325 MG TAB PO SCH (10:52)
[2017-08-27] MEDS: SPIRONOLACTONE 25 MG TAB PO SCH (10:53)
[2017-08-27] MEDS: MORPHINE SULFATE ER 15 MG TABLET PO SCH ×2 (11:08→20:07)
--- NOTE | 2017-08-27 11:12 | ECHOF ---
Referral Reason:Thrombus MEASUREMENTS -------- HEIGHT: 157.5 cm WEIGHT: 68.0 kg BP: 112/59 IVSd: 1.0 cm (0.6 - 1.1) LVIDd: 3.0 cm (3.9 - 5.3) LVPWd: 1.2 cm (0.6 - 1.1) IVSs: 1.5 cm LVIDs: 1.5 cm LVPWs: 1.3 cm Ao Diam: 3.1 cm (2.0 - 3.7) AV Cusp: 1.6 cm (1.5 - 2.6) LA Diam: 2.9 cm (2.7 - 3.8) MV E Hima: 0.57 m/s MV DecT: 153 ms MV A Hima: 0.94 m/s MV E/A Ratio: 0.61 AR PHT: 353 ms RAP: 5.00 mmHg RVSP: 13.69 mmHg FINDINGS -------- Sinus rhythm. This was a technically difficult study with suboptimal views. The left ventricular size is normal. Left ventricular wall thickness is normal. Overall left vent ricular systolic function is normal with, an EF between 55 - 60 %. The right ventricle is normal in size and function. The left atrium is normal in size. The right atrium is normal in size. There is mild aortic regurgitation. The mitral valve leaflets are mildly thickened. There is trace mitral regurgitation. Trace tricuspid regurgitation present. The right ventricular systolic pressure, as measured by Dopp ler, is 13.69mmHg. Pulmonic valve appears structurally normal. The aortic root size is normal. The pericardium is normal. CONCLUSIONS -------- 1. Sinus rhythm. 2. This was a technically difficult study with suboptimal views. 3. The left ventricular size is normal. 4. Left ventricular wall thickness is normal. 5. Overall left ventricular systolic function is normal with, an EF between 55 - 60 %. 6. The right ventricle is normal in size and function. 7. The left atrium is normal in size. 8. The right atrium is normal in size. 9. There is mild aortic regurgitation. 10. The mitral valve leaflets are mildly thickened. 11. There is trace mitral regurgitation. 12. Trace tricuspid regurgitation present. 13. The right ventricular systolic pressure, as measured by Doppler, is 13.69mmHg. 14. Pulmonic valve appears structurally normal. 15. The aortic root size is normal. 16. The pericardium is normal. ANDROID SOFTWARE ENGINEER: Kelly Santiago RDCS
--- NOTE | 2017-08-27 12:40 | P.PN ---
Subjective Progress Note Date: 08/27/17 The patient is hard of hearing her son is present at bedside, apparently she resides in the assisted living facility. And presented here with confusion Trouble remembering numbers finding the right words to say. Again discussed with the son at bedside he does express some concern that the patient might not be taking her pills correctly. Reports that times there is either too much or too few pills in her pillbox and stated that she might forget to take a certain pill but then would remembering to take an increased dose. Patient reports a history of being on chronic narcotics for her lower back pain, reports being managed by pain management on morphine and [place] for several years, also taking Xanax and trazodone. Son reports that the patient has not baseline feels better today, patient does report feeling weak otherwise no acute events Objective - Vital Signs Vital signs: Vital Signs Temp 98.5 F 08/27/17 09:40 Pulse 100 08/27/17 11:18 Resp 16 08/27/17 11:18 BP 124/73 08/27/17 11:18 Pulse Ox 95 08/27/17 11:18 Intake & Output 08/26/17 08/27/17 08/27/17 18:59 06:59 18:59 Weight 68.039 kg 68 kg - Exam Constitutional: No acute distress, conversant, pleasant Eyes: Anicteric sclerae, moist conjunctiva, no lid-lag, PERRLA ENMT: NC/AT,Oropharynx clear, no erythema, exudates Neck:Supple, FROM, no masses, or JVD, No carotid bruits; No thyromegaly Lungs: Clear to auscultation, Clear to percussion, Normal respiratory effort, no accessory muscle use Cardiovascular: Heart regular in rate and rhythm, No murmurs, gallops, or rubs no peripheral edema Abdominal: Soft Nontender, nom distended, no guarding, no rebound or rigidity, Normoactive bowel sounds No hepatomegaly, No splenomegaly, No palpable mass No abdominal wall hernia noted Skin: Normal temperature, tone, texture, turgor, No induration No subcutaneous nodules, No rash, lesions, No ulcers Extremities:No digital cyanosis No clubbing, Pedal pulses intact and symmetrical Radial pulses intact and symmetrical Normal gait and station, No calf tenderness Psychiatric: Alert and oriented to person, place and time, Appropriate affect Intact judgement Neuro: Muscles Strength 5/5 in all 4 extremities, Sensation to light touch grossly present throughout, Cranial nerves II-XII grossly intact. No focal sensory deficits - Labs CBC & Chem 7: 08/26/17 20:30 08/26/17 20:30 Labs: Abnormal Lab Results - Last 24 Hours (Table) 08/26/17 08/26/17 08/26/17 Range/Units 20:30 20:30 21:00 Glucose 119 H (74-99) mg/dL Triglycerides 219 H (<150) mg/dL LDL Cholesterol, Calc 100 H (0-99) mg/dL Ur Leukocyte Esterase Small H (Negative) Urine Mucus Rare H (None) /hpf Microbiology - Last 24 Hours (Table) 08/26/17 21:00 Urine Culture - Preliminary Urine,Voided Assessment and Plan (1) TIA (transient ischemic attack) Narrative/Plan: * Workup so far as been negative * Cardiology for his negative for any likely significant carotid disease, echocardiogram with normal LV function * Continue daily aspirin. Neurology is been consulted. Consult physical therapy Current Visit: Yes Status: Acute Code(s): G45.9 - TRANSIENT CEREBRAL ISCHEMIC ATTACK, UNSPECIFIED SNOMED Code(s): 437463127 (2) Polypharmacy Narrative/Plan: * Discussed the plan of care with the son regarding patient's polypharmacy * Apparently they are seeking a new primary care provider in order to de- escalate the patient's pharmacological regimen Current Visit: Yes Status: Acute Code(s): Z79.899 - OTHER GROUP HOME (CURRENT ) DRUG THERAPY SNOMED Code(s): 061764938 (3) Confusion Narrative/Plan: * Per history likely polypharmacy versus actual TIA this is patient's second episode previous workup also negative * Patient might also have some minimal baseline dementia we'll await neurology recommendations perhaps patient can benefit from Aricept if this is determined to be the cause of her confusion Current Visit: Yes Status: Acute Code(s): R41.0 - DISORIENTATION, UNSPECIFIED SNOMED Code(s): 879443772 (4) Hyperlipidemia Narrative/Plan: * Change from pravastatin to Lipitor as the LDL was not at goal Current Visit: Yes Status: Acute Code(s): E78.5 - HYPERLIPIDEMIA, UNSPECIFIED SNOMED Code(s): 68283707 Plan: Await neurology recommendations. We'll continue to follow anticipated discharge tomorrow
--- NOTE | 2017-08-27 20:16 | P.CNNES ---
History of Present Illness Consult date: 08/27/17 History of Present Illness: The patient is an 81-year-old right-handed white female who states that Friday she had episode of at home where she felt confused and wasn't thinking properly. She states she couldn't remember phone numbers she couldn't remember people's names. She received a phone call from her friend but did not recognize her friend on was talking to her on the phone. Her friend called her daughter within called her son who brought her to the emergency room. By the time she got to the emergency room she felt that she was back to her baseline. Her episode in March 2017 for which she came to the hospital. The patient denies any other neurologic complaints such as focal weakness numbness visual changes loss of balance or coordination. She states she has been slightly unsteady and uses a walker or cane at home. She did have a carotid ultrasound which did not show any significant stenosis. She an echocardiogram cardiogram which was unremarkable. She had a CT of the brain which did not show any acute findings Review of Systems Constitutional: Denies chills, Denies fever Eyes: denies blurred vision, denies pain Ears, nose, mouth and throat: Reports as per HPI Respiratory: Denies cough Gastrointestinal: Denies abdominal pain, Denies diarrhea, Denies nausea, Denies vomiting Musculoskeletal: Denies myalgias Integumentary: Denies pruritus, Denies rash Neurological: Denies numbness, Denies weakness Past Medical History Past Medical History: Heart Failure, CVA/TIA, Hyperlipidemia, Hypertension, Thyroid Disorder Additional Past Medical History / Comment(s): SEPSIS, C DIFF 2009, SHINGLES in 2008, FX TAILBONE,CHF, "leakage of urine", past migraines, varicose veis, hiatal hernia, diverticular disease.anx/depression.recieved a flu vaccine this year -not sure of date and office closed at time of this admit. History of Any Multi-Drug Resistant Organisms: None Reported Date of last positivie culture/infection: 2009 MDRO Source:: STOOL Past Surgical History: Adenoidectomy, Appendectomy, Cholecystectomy, Heart Catheterization, Hysterectomy, Tonsillectomy Additional Past Surgical History / Comment(s): slick cataracts. (has total 3 sx on lt eye), colonoscopy/egd, heart cath 1996. Past Anesthesia/Blood Transfusion Reactions: No Reported Reaction Past Psychological History: Anxiety, Depression Additional Psychological History / Comment(s): pt stated feels well maintained on meds. pt lives at [facility], uses walker when up. has a counselor from [employer]. Smoking Status: Never smoker Past Alcohol Use History: None Reported Past Drug Use History: None Reported - Past Family History Mother Family Medical History: Diabetes Mellitus Additional Family Medical History / Comment(s): brain aneurysm Father Family Medical History: Coronary Artery Disease (CAD), Myocardial Infarction ([place] ) Son(s) Family Medical History: Cancer Medications and Allergies Home Medications Medication Instructions Recorded Confirmed Type Aspirin EC [Ecotrin] 81 mg PO DAILY 09/24/13 08/26/17 History amLODIPine [Norvasc] 5 mg PO HS 02/27/14 08/26/17 History Losartan Potassium [Losartan 25 mg PO QAM 08/17/14 08/26/17 History Potassium] Pravastatin Sodium [Pravachol] 80 mg PO HS 08/19/14 08/26/17 History rOPINIRole HCL [Requip] 1 mg PO HS 08/19/14 08/26/17 History HYDROcodone/APAP 7.5-325MG [[place] 1 tab PO Q4H PRN 04/01/17 08/26/17 History 7.5-325] Morphine Sulfate ER [Ms Contin 15 mg PO BID 04/01/17 08/26/17 History 15Mg] traZODone HCL 300 mg PO HS 04/01/17 08/26/17 History ALPRAZolam [Xanax] 0.5 mg PO HS PRN 08/26/17 08/26/17 History DULoxetine HCL [Cymbalta] 60 mg PO DAILY 08/26/17 08/26/17 History Furosemide [Lasix] 20 mg PO MOWEFR 08/26/17 08/26/17 History Spironolactone 50 mg PO DAILY 08/26/17 08/26/17 History Allergies Allergy/AdvReac Type Severity Reaction Status Date / Time Sulfa (Sulfonamide Allergy Unknown Verified 08/26/17 19:40 Antibiotics) zolpidem tartrate AdvReac Confusion Verified 08/26/17 19:40 [From [place]] Physical Examination - Vital Signs Vital Signs: Vital Signs Temp Pulse Pulse Resp BP BP Pulse Ox 08/27/17 20:00 97.5 F L 80 16 109/56 95 08/27/17 16:50 98.1 F 87 16 109/67 94 L 08/27/17 16:30 16 08/27/17 11:18 100 16 124/73 95 08/27/17 11:15 16 08/27/17 09:40 98.5 F 94 16 133/71 96 08/27/17 08:00 98.3 F 95 16 137/61 95 08/27/17 06:30 79 14 128/61 95 08/27/17 03:55 74 16 112/59 93 L 08/27/17 01:55 72 16 131/57 97 08/27/17 00:55 99.1 F 76 16 119/56 95 08/26/17 23:55 74 18 111/63 96 08/26/17 23:27 80 16 108/56 95 08/26/17 22:55 99.1 F 74 18 108/56 95 08/26/17 21:55 82 18 132/74 94 L 08/26/17 21:25 85 18 141/74 94 L 08/26/17 20:55 86 18 142/69 95 08/26/17 20:25 88 18 131/74 93 L 08/26/17 20:10 92 18 135/69 Intake and Output 08/27/17 08/27/17 08/27/17 06:59 14:59 22:59 Other: # Voids 1 Weight 68 kg - Constitutional General appearance: average body habitus, cooperative - EENT EENT: PERRL, hearing intact, vision intact - Respiratory Respiratory: lungs clear, normal breath sounds - Cardiovascular Cardiovascular: regular rate, normal S1, normal S2 - Integumentary Integumentary: normal - Neurologic Mental status she was awake alert and oriented 3 she was able to give the date she was able to name the hospital she was able to name the county she was able to do simple calculations she was able to spell world forward and backward there was no a aphasia or dysarthria. Cranial nerve examination: PERRL, EOMI, ptosis (Left ptosis is chronic), face symmetric, tongue midline Speech examination: intact Sensorimotor examination: intact Detailed motor examination: grossly full strength in all extremities Detailed sensory examination: intact Reflex and gait examination: intact Reflexes: 2+: knee - Psychiatric Psychiatric: mood/affect appropriate Results - Laboratory Findings CBC and BMP: 08/26/17 20:30 08/26/17 20:30 Abnormal Lab Findings: Abnormal Labs 08/26/17 08/26/17 08/26/17 20:30 20:30 21:00 Glucose 119 H Triglycerides 219 H LDL Cholesterol, Calc 100 H Ur Leukocyte Esterase Small H Urine Mucus Rare H Assessment and Plan (1) TIA (transient ischemic attack) Current Visit: Yes Status: Acute SNOMED Code(s): 101403285 (2) Altered mental status Current Visit: Yes Status: Acute SNOMED Code(s): 008323679 Plan: The patient is an 81-year-old woman who has had 2 episodes over the last 6 months of confusion lasting for about 30-40 minutes. Neurologic examination is nonfocal. She has had a CAT scan of the brain which was unremarkable she has had a carotid ultrasound which did not show any significant stenosis. His had an echocardiogram which was unremarkable. Recommend further evaluation with MRI of the brain and EEG. She states she does not drive. Continue aspirin therapy
[2017-08-27] MEDS ORDERED: traZODone HCL 100 MG TAB PO SCH (21:00)
[2017-08-27] MEDS ORDERED: ATORVASTATIN 20 MG TAB PO SCH (21:00)
[2017-08-27] MEDS ORDERED: amLODIPine 5 MG TAB PO SCH (21:00)
[2017-08-27] MEDS ORDERED: PRAVASTATIN SODIUM 80 MG TAB PO SCH (21:00)
--- NOTE | 2017-08-27 21:01 | MR ---
EXAMINATION TYPE: MR brain wo con DATE OF EXAM: 08/27/2017 8:52 PM COMPARISON: NONE HISTORY: altered mental status/tia FINDINGS: The ventricles, basal cisterns and sulci overlying the cerebral convexities are mildly enlarged. There is evidence of mild to moderate periventricular white matter ischemic demyelination. Remote deep white matter insults are also noted. No acute edema is seen on diffusion weighted imaging. There is no evidence for midline shift or mass effect. Acute intracranial hemorrhage or extra-axial collection is not evident. The paranasal sinuses and mastoid air cells are well-aerated. IMPRESSION: Age-related atrophic and chronic small vessel ischemic change. No acute intracranial process at this time.
[2017-08-28] MEDS: MORPHINE SULFATE ER 15 MG TABLET PO SCH (08:44)
[2017-08-28] MEDS: DULoxetine HCL 60 MG CAPSULE.DR PO SCH (08:45)
[2017-08-28] MEDS: ASPIRIN 325 MG TAB PO SCH (08:45)
[2017-08-28] MEDS: LOSARTAN 25 MG TAB PO SCH (08:45)
[2017-08-28] MEDS: HEPARIN SODIUM,PORCINE 5,000 UNIT/ML 1 ML VIAL SQ SCH (08:45)
[2017-08-28] MEDS: SPIRONOLACTONE 25 MG TAB PO SCH (08:46)
[2017-08-28 08:50] VITALS: TEMP 98.9
[2017-08-28 11:41] VITALS: BP 134/67; PULSE 86
--- NOTE | 2017-08-28 14:16 | P.DS ---
Providers Date of admission: 08/26/17 22:26 Expected date of discharge: 08/28/17 Attending physician: Manju Vasquez MD Consults: 08/26/17 22:27 Consult Physician Routine Consulting Provider: Vera Chauhan Consult Reason/Comments: TIA Do you want consulting provider notified?: Yes Primary care physician: Roxana Victor MD - Discharge Diagnosis(es) (1) Dementia Status: Acute (2) Polypharmacy Status: Acute (3) TIA (transient ischemic attack) Status: Acute (4) Confusion Status: Acute (5) Hyperlipidemia Status: Acute Hospital Course: Patient is a 81-year-old female that was admitted placed on observation on the telemetry unit after she presented with confusion and inability to recall phone numbers and people's names, she was admitted for concern for TIA. The patient's the patient's second hospitalization in the last 6 months for similar symptoms. CT of the head was negative for any acute findings, Doppler echocardiogram was negative for any intracardiac shunt, cardiac Dopplers are negative for any clinically significant carotid artery disease. Per the patient's son it appeared that the patient had been having intermittent episodes of forgetfulness with regards to her taking her medications at the assisted living facility, he reported that at times the patient would forget her medications then to make up for it she would take too many of them at once. Apparently the patient had been on chronic narcotic therapy for lower back pain and was taking oral morphine and [place], along with trazodone and Xanax, though started that the patient's symptoms were related to polypharmacy versus possible early dementia (CT of the head did show age- related atrophy). The patient was placed on aspirin and neurology Dr. Chauhan, MRI of the head was performed that did not show any acute intracranial pathology. EEG was also performed and results are pending at time of discharge. The patient's symptoms had resolved she was subsequently discharged home in stable condition with a new prescription for aspirin 162 mg by mouth daily, and Lipitor 20 mg by mouth daily at bedtime. The patient and her son was instructed to follow-up with her PCP Dr. Victor on Friday to discuss the patient's medications and possibly de-escalating pharmacological therapy. The patient also has a follow-up appointment to see neurology 09/16/17. This discharge process took approximately 35 minutes Patient Condition at Discharge: Stable Plan - Discharge Summary Discharge Rx Participant: No New Discharge Prescriptions: New Aspirin [Durlaza] 162.5 mg PO DAILY #30 cap.er.24h Atorvastatin [Lipitor] 20 mg PO HS #90 tab Continue amLODIPine [Norvasc] 5 mg PO HS Losartan Potassium 25 mg PO QAM rOPINIRole HCL [Requip] 1 mg PO HS Morphine Sulfate ER [Ms Contin] 15 mg PO BID HYDROcodone/APAP 7.5-325MG [[place] 7.5-325] 1 tab PO Q4H PRN PRN Reason: Pain traZODone HCL 300 mg PO HS DULoxetine HCL [Cymbalta] 60 mg PO DAILY ALPRAZolam [Xanax] 0.5 mg PO HS PRN PRN Reason: Anxiety Spironolactone 50 mg PO DAILY Furosemide [Lasix] 20 mg PO MOWEFR Discontinued Aspirin EC [Ecotrin] 81 mg PO DAILY Pravastatin Sodium [Pravachol] 80 mg PO HS Discharge Medication List amLODIPine [Norvasc] 5 mg PO HS 02/27/14 [History] Losartan Potassium 25 mg PO QAM 08/17/14 [History] rOPINIRole HCL [Requip] 1 mg PO HS 08/19/14 [History] HYDROcodone/APAP 7.5-325MG [[place] 7.5-325] 1 tab PO Q4H PRN 04/01/17 [History] Morphine Sulfate ER [Ms Contin] 15 mg PO BID 04/01/17 [History] traZODone HCL 300 mg PO HS 04/01/17 [History] ALPRAZolam [Xanax] 0.5 mg PO HS PRN 08/26/17 [History] DULoxetine HCL [Cymbalta] 60 mg PO DAILY 08/26/17 [History] Furosemide [Lasix] 20 mg PO MOWEFR 08/26/17 [History] Spironolactone 50 mg PO DAILY 08/26/17 [History] Aspirin [Durlaza] 162.5 mg PO DAILY #30 cap.er.24h 08/28/17 [Rx] Atorvastatin [Lipitor] 20 mg PO HS #90 tab 08/28/17 [Rx] Follow up Appointment(s)/Referral(s): Roxana Victor MD [Primary Care Provider] - 1-2 days (Please call to schedule appointment) Yin Chauhan MD [STAFF PHYSICIAN] - 09/16/17 2:30 pm (Friday) Patient Instructions/Handouts: Transient Ischemic Attack (DC) Discharge Disposition: HOME SELF-CARE
--- NOTE | 2017-08-29 13:18 | EEG ---
ELECTROENCEPHALOGRAM REPORT DATE OF EE08/28/2017. ELECTROENCEPHALOGRAPHIC EXAMINATION REPORT: INDICATION FOR EXAMINATION: This patient is an 81-year-old female being evaluated for altered mental status and TIA. Patient with acute memory loss, which has subsequently resolved. MRI of the brain was negative for any acute changes. AGE: 81. EEG FINDINGS: A routine 21 channel awake digital EEG recording was accomplished utilizing the 10-20 international system with bipolar and referential montages. The background activity in the most alert resting state consists of a low to medium amplitude, fairly well- developed and well-sustained 7-8 Hz activity over the posterior head regions. This posterior rhythm attenuates to eye opening. There is a small amount of low amplitude 18-20 Hz beta activity seen maximally over the anterior head regions. Muscle and movement artifact was observed on a few occasions during the tracing. Hyperventilation was not performed. Photic stimulation at flash frequencies of 2-30 Hz produced a good symmetrical occipital driving response. No epileptiform discharges were seen. IMPRESSION: This EEG is within normal limits for the patient's age. The EEG failed to reveal any focal, lateralized, or epileptiform abnormalities. Clinical correlation is recommended. MMODL / IJN: [id number] /
== END 2017-08-28 13:20 | disposition home or self-care (01) ==
LOC: EC 17:52 → 6SEL 22:26
PROVIDERS: ADMIT Internal Medicine; ATTEND Internal Medicine
DX: G45.9 Transient cerebral ischemic attack, unspecified (principal); F03.90 Unspecified dementia, unspecified severity, without behavioral disturbance, psychotic disturbance, mood disturbance, and anxiety; I11.0 Hypertensive heart disease with heart failure; I50.9 Heart failure, unspecified; E07.9 Disorder of thyroid, unspecified; F41.9 Anxiety disorder, unspecified; F32.9 Major depressive disorder, single episode, unspecified; K57.90 Diverticulosis of intestine, part unspecified, without perforation or abscess without bleeding; M54.5 Low back pain; E78.5 Hyperlipidemia, unspecified; I83.90 Asymptomatic varicose veins of unspecified lower extremity; K44.9 Diaphragmatic hernia without obstruction or gangrene; G43.909 Migraine, unspecified, not intractable, without status migrainosus; Z79.82 Long term (current) use of aspirin; Z79.891 Long term (current) use of opiate analgesic; Z79.899 Other long term (current) drug therapy; Z88.2 Allergy status to sulfonamides; Z88.8 Allergy status to other drugs, medicaments and biological substances; Z86.73 Personal history of transient ischemic attack (TIA), and cerebral infarction without residual deficits; Z86.19 Personal history of other infectious and parasitic diseases; Z82.49 Family history of ischemic heart disease and other diseases of the circulatory system; Z83.3 Family history of diabetes mellitus
CPT/HCPCS: 99285 ×2; 96372 ×2; 36415; 95816; 93005; 93306; 97116; 97162; 97166; 92523; 80061; 80053; 84443; 82607; 82550; 82553; 83605; 84484; 85025; 85610; 85730; 81001; 87040; 87086; 71046; 93880; 70450; 70551; G0378 ×3; J1644 ×2

== ENCOUNTER 2017-09-14 10:53 | Observation (INO) | payer MEDICARE, BC ==
[2017-09-14 11:21] LABS: Basophils # (A) 0.1 k/uL (0-0.2); Basophils % (A) 1 %; Eosinophils # (A) 0.1 k/uL (0-0.7); Eosinophils % (A) 2 %; HCT 42.4 % (34.0-46.0); HGB 13.7 gm/dL (11.4-16.0); Lymphocytes # (A) 1.3 k/uL (1.0-4.8); Lymphocytes % (A) 19 %; MCH 30.4 pg (25.0-35.0); MCHC 32.4 g/dL (31.0-37.0); MCV 93.8 fL (80.0-100.0); Mean Platelet Volume 9.8; Monocytes # (A) 0.4 k/uL (0-1.0); Monocytes % (A) 6 %; Neutrophils % (A) 71 %; Platelet Count 200 k/uL (150-450); RBC 4.52 m/uL (3.80-5.40); RDW 13.5 % (11.5-15.5)
[2017-09-14 11:40] LABS: Albumin 3.8 g/dL (3.5-5.0); Calcium 9.1 mg/dL (8.4-10.2); Magnesium 2.1 mg/dL (1.6-2.3); Potassium 4.6 mmol/L (3.5-5.1); Total Bilirubin 0.5 mg/dL (0.2-1.3); Total Protein 6.1 g/dL (6.3-8.2)
[2017-09-14 11:43] LABS: Creatine Kinase 93 U/L (30-135)
--- NOTE | 2017-09-14 11:47 | ED ---
General Adult HPI - General Chief complaint: Fall Stated complaint: Fall Time Seen by Provider: 09/14/17 11:00 Source: patient, EMS, RN notes reviewed, old records reviewed Mode of arrival: EMS Limitations: no limitations - History of Present Illness Initial comments: This is a 81-year-old female was brought in for evaluation for dizziness and frequent falls. She states she's had decreased oral intake because she doesn't like eating she came in by EMS with a cervical collar complains some head pain in the back as well as some minor neck discomfort. No focal loss of function to her upper or lower extremities is found have a blood pressure 126/74 glucose 134 L saturation 91% increased on 2 L to 95%. No recent fevers chills nausea vomiting sweats. No complaints of dysuria. Patient has a history of TIA parathyroid disease and hypertension. - Related Data Home Medications Medication Instructions Recorded Confirmed Losartan Potassium 25 mg PO QAM 08/17/14 09/14/17 Morphine Sulfate ER [Ms Contin] 15 mg PO BID 04/01/17 09/14/17 ALPRAZolam [Xanax] 0.5 mg PO DAILY PRN 08/26/17 09/14/17 DULoxetine HCL [Cymbalta] 60 mg PO DAILY 08/26/17 09/14/17 Furosemide [Lasix] 20 mg PO MOWEFR 08/26/17 09/14/17 Spironolactone 50 mg PO DAILY 08/26/17 09/14/17 Aspirin EC [Ecotrin Low Dose] 162 mg PO DAILY 09/14/17 09/14/17 Diazepam [Valium] 5 mg PO HS 09/14/17 09/14/17 HYDROcodone/APAP 5-325MG [[place] 1 tab PO Q4HR PRN 09/14/17 09/14/17 5-325] amLODIPine [Norvasc] 10 mg PO HS 09/14/17 09/14/17 Previous Rx's Medication Instructions Recorded Atorvastatin [Lipitor] 20 mg PO HS #90 tab 08/28/17 Famotidine [Pepcid] 20 mg PO HS #14 tablet 09/14/17 Allergies Allergy/AdvReac Type Severity Reaction Status Date / Time Sulfa (Sulfonamide Allergy Unknown Verified 09/14/17 11:30 Antibiotics) zolpidem tartrate AdvReac Confusion Verified 09/14/17 11:30 [From Bernard] Review of Systems ROS Statement: Those systems with pertinent positive or pertinent negative responses have been documented in the HPI. ROS Other: All systems not noted in ROS Statement are negative. Past Medical History Past Medical History: Heart Failure, CVA/TIA, Hyperlipidemia, Hypertension, Thyroid Disorder Additional Past Medical History / Comment(s): SEPSIS, C DIFF 2009, SHINGLES in 2008, FX TAILBONE,CHF, "leakage of urine", past migraines, varicose veis, hiatal hernia, diverticular disease.anx/depression.recieved a flu vaccine this year -not sure of date and office closed at time of this admit. History of Any Multi-Drug Resistant Organisms: None Reported Date of last positivie culture/infection: 2009 MDRO Source:: STOOL Past Surgical History: Adenoidectomy, Appendectomy, Cholecystectomy, Heart Catheterization, Hysterectomy, Tonsillectomy Additional Past Surgical History / Comment(s): slick cataracts. (has total 3 sx on lt eye), colonoscopy/egd, heart cath 1996. Past Anesthesia/Blood Transfusion Reactions: No Reported Reaction Past Psychological History: Anxiety, Depression Smoking Status: Never smoker Past Alcohol Use History: None Reported Past Drug Use History: None Reported - Past Family History Mother Family Medical History: Diabetes Mellitus Additional Family Medical History / Comment(s): brain aneurysm Father Family Medical History: Coronary Artery Disease (CAD), Myocardial Infarction (AL ) Son(s) Family Medical History: Cancer General Exam - General Exam Comments Initial Comments: This is a well-developed wall nourished awake alert oriented 3 female Limitations: no limitations General appearance: alert, in no apparent distress Head exam: Present: atraumatic, normocephalic, normal inspection Eye exam: Present: normal appearance, PERRL, EOMI. Absent: scleral icterus, conjunctival injection, periorbital swelling ENT exam: Present: mucous membranes dry Neck exam: Present: normal inspection. Absent: tenderness, meningismus, lymphadenopathy Respiratory exam: Present: normal lung sounds bilaterally. Absent: respiratory distress, wheezes, rales, rhonchi, stridor Cardiovascular Exam: Present: regular rate, normal rhythm, normal heart sounds. Absent: systolic murmur, diastolic murmur, rubs, gallop, clicks GI/Abdominal exam: Present: soft, normal bowel sounds. Absent: distended, tenderness, guarding, rebound, rigid Extremities exam: Present: normal inspection, full ROM, normal capillary refill. Absent: tenderness, pedal edema, joint swelling, calf tenderness Back exam: Present: normal inspection Neurological exam: Present: alert, oriented X3, CN II-XII intact Psychiatric exam: Present: normal affect, normal mood Skin exam: Present: warm, dry, intact, normal color. Absent: rash Course Vital Signs 09/14/17 10:55 Temperature 98 F Pulse Rate 79 Respiratory 18 Rate Blood Pressure 124/59 O2 Sat by Pulse 93 L Oximetry EKG Findings - EKG Results: EKG: interpreted by CRAIG, sinus rhythm (EKG shows normal sinus rhythm rate was 83. Interval 160 QRS duration 82 QT since QTC 360/423 nonspecific T-wave configuration some artifact is present) Medical Decision Making - Lab Data Result diagrams: 09/14/17 11:12 09/14/17 11:12 Lab Results 09/14/17 09/14/17 09/14/17 Range/Units 11:12 11:12 11:12 WBC (3.8-10.6) k/uL RBC (3.80-5.40) m/uL Hgb (11.4-16.0) gm/dL Hct (34.0-46.0) % MCV (80.0-100.0) fL MCH (25.0-35.0) pg MCHC (31.0-37.0) g/dL RDW (11.5-15.5) % Plt Count (150-450) k/uL Neutrophils % % Lymphocytes % % Monocytes % % Eosinophils % % Basophils % % Neutrophils # (1.3-7.7) k/uL Lymphocytes # (1.0-4.8) k/uL Monocytes # (0-1.0) k/uL Eosinophils # (0-0.7) k/uL Basophils # (0-0.2) k/uL D-Dimer 1.02 H (<0.60) mg/L FEU Sodium 143 (137-145) mmol/L Potassium 4.6 (3.5-5.1) mmol/L Chloride 107 (98-107) mmol/L Carbon Dioxide 24 (22-30) mmol/L Anion Gap 12 mmol/L BUN 24 H (7-17) mg/dL Creatinine 0.79 (0.52-1.04) mg/dL Est GFR (CKD-EPI)AfAm 82 (>60 ml/min/1.73 sqM) Est GFR (CKD-EPI)NonAf 71 (>60 ml/min/1.73 sqM) Glucose 116 H (74-99) mg/dL Calcium 9.1 (8.4-10.2) mg/dL Magnesium 2.1 (1.6-2.3) mg/dL Total Bilirubin 0.5 (0.2-1.3) mg/dL AST 32 (14-36) U/L ALT 58 H (9-52) U/L Alkaline Phosphatase 125 (38-126) U/L Total Creatine Kinase 93 (30-135) U/L CK-MB (CK-2) 0.2 (0.0-2.4) ng/mL CK-MB (CK-2) Rel Index 0.2 Troponin I <0.012 (0.000-0.034) ng/mL Total Protein 6.1 L (6.3-8.2) g/dL Albumin 3.8 (3.5-5.0) g/dL Amylase 46 (30-110) U/L Lipase 106 (23-300) U/L 09/14/17 Range/Units 11:12 WBC 7.0 (3.8-10.6) k/uL RBC 4.52 (3.80-5.40) m/uL Hgb 13.7 (11.4-16.0) gm/dL Hct 42.4 (34.0-46.0) % MCV 93.8 (80.0-100.0) fL MCH 30.4 (25.0-35.0) pg MCHC 32.4 (31.0-37.0) g/dL RDW 13.5 (11.5-15.5) % Plt Count 200 (150-450) k/uL Neutrophils % 71 % Lymphocytes % 19 % Monocytes % 6 % Eosinophils % 2 % Basophils % 1 % Neutrophils # 5.0 (1.3-7.7) k/uL Lymphocytes # 1.3 (1.0-4.8) k/uL Monocytes # 0.4 (0-1.0) k/uL Eosinophils # 0.1 (0-0.7) k/uL Basophils # 0.1 (0-0.2) k/uL D-Dimer (<0.60) mg/L FEU Sodium (137-145) mmol/L Potassium (3.5-5.1) mmol/L Chloride (98-107) mmol/L Carbon Dioxide (22-30) mmol/L Anion Gap mmol/L BUN (7-17) mg/dL Creatinine (0.52-1.04) mg/dL Est GFR (CKD-EPI)AfAm (>60 ml/min/1.73 sqM) Est GFR (CKD-EPI)NonAf (>60 ml/min/1.73 sqM) Glucose (74-99) mg/dL Calcium (8.4-10.2) mg/dL Magnesium (1.6-2.3) mg/dL Total Bilirubin (0.2-1.3) mg/dL AST (14-36) U/L ALT (9-52) U/L Alkaline Phosphatase (38-126) U/L Total Creatine Kinase (30-135) U/L CK-MB (CK-2) (0.0-2.4) ng/mL CK-MB (CK-2) Rel Index Troponin I (0.000-0.034) ng/mL Total Protein (6.3-8.2) g/dL Albumin (3.5-5.0) g/dL Amylase (30-110) U/L Lipase (23-300) U/L Disposition Clinical Impression: Abdominal pain, Dyspepsia Disposition: HOME SELF-CARE Condition: Good Instructions: Abdominal Pain (ED), Peptic Ulcer (ED) Prescriptions: Famotidine [Pepcid] 20 mg PO HS #14 tablet Is patient prescribed a controlled substance at d/c from ED?: No Referrals: None,Stated [Primary Care Provider] - 1-2 days
[2017-09-14 11:56] LABS: Creatine Kinase MB 0.2 ng/mL (0.0-2.4); Troponin I <0.012 ng/mL (0.000-0.034)
[2017-09-14] MEDS ORDERED: FAMOTIDINE 20 MG TAB PO STA (12:02)
--- NOTE | 2017-09-14 12:09 | ED ---
Medical Decision Making - Medical Decision Making I did discuss the findings with the patient family and with Dr. norris cecal patient will be admitted for IV fluids urine will be cultured and Ramon will be started. - Lab Data Result diagrams: 09/14/17 11:12 09/14/17 11:12 Lab Results 09/14/17 09/14/17 09/14/17 Range/Units 11:12 11:12 11:12 WBC (3.8-10.6) k/uL RBC (3.80-5.40) m/uL Hgb (11.4-16.0) gm/dL Hct (34.0-46.0) % MCV (80.0-100.0) fL MCH (25.0-35.0) pg MCHC (31.0-37.0) g/dL RDW (11.5-15.5) % Plt Count (150-450) k/uL Neutrophils % % Lymphocytes % % Monocytes % % Eosinophils % % Basophils % % Neutrophils # (1.3-7.7) k/uL Lymphocytes # (1.0-4.8) k/uL Monocytes # (0-1.0) k/uL Eosinophils # (0-0.7) k/uL Basophils # (0-0.2) k/uL D-Dimer 1.02 H (<0.60) mg/L FEU Sodium 143 (137-145) mmol/L Potassium 4.6 (3.5-5.1) mmol/L Chloride 107 (98-107) mmol/L Carbon Dioxide 24 (22-30) mmol/L Anion Gap 12 mmol/L BUN 24 H (7-17) mg/dL Creatinine 0.79 (0.52-1.04) mg/dL Est GFR (CKD-EPI)AfAm 82 (>60 ml/min/1.73 sqM) Est GFR (CKD-EPI)NonAf 71 (>60 ml/min/1.73 sqM) Glucose 116 H (74-99) mg/dL Calcium 9.1 (8.4-10.2) mg/dL Magnesium 2.1 (1.6-2.3) mg/dL Total Bilirubin 0.5 (0.2-1.3) mg/dL AST 32 (14-36) U/L ALT 58 H (9-52) U/L Alkaline Phosphatase 125 (38-126) U/L Total Creatine Kinase 93 (30-135) U/L CK-MB (CK-2) 0.2 (0.0-2.4) ng/mL CK-MB (CK-2) Rel Index 0.2 Troponin I <0.012 (0.000-0.034) ng/mL Total Protein 6.1 L (6.3-8.2) g/dL Albumin 3.8 (3.5-5.0) g/dL Amylase 46 (30-110) U/L Lipase 106 (23-300) U/L Urine Color Urine Appearance (Clear) Urine pH (5.0-8.0) Ur Specific Almond (1.001-1.035) Urine Protein (Negative) Urine Glucose (UA) (Negative) Urine Ketones (Negative) Urine Blood (Negative) Urine Nitrite (Negative) Urine Bilirubin (Negative) Urine Urobilinogen (<2.0) mg/dL Ur Leukocyte Esterase (Negative) Urine RBC (0-5) /hpf Urine WBC (0-5) /hpf Ur Squamous Epith Cells (0-4) /hpf Urine Bacteria (None) /hpf Urine Mucus (None) /hpf 09/14/17 09/14/17 Range/Units 11:12 12:48 WBC 7.0 (3.8-10.6) k/uL RBC 4.52 (3.80-5.40) m/uL Hgb 13.7 (11.4-16.0) gm/dL Hct 42.4 (34.0-46.0) % MCV 93.8 (80.0-100.0) fL MCH 30.4 (25.0-35.0) pg MCHC 32.4 (31.0-37.0) g/dL RDW 13.5 (11.5-15.5) % Plt Count 200 (150-450) k/uL Neutrophils % 71 % Lymphocytes % 19 % Monocytes % 6 % Eosinophils % 2 % Basophils % 1 % Neutrophils # 5.0 (1.3-7.7) k/uL Lymphocytes # 1.3 (1.0-4.8) k/uL Monocytes # 0.4 (0-1.0) k/uL Eosinophils # 0.1 (0-0.7) k/uL Basophils # 0.1 (0-0.2) k/uL D-Dimer (<0.60) mg/L FEU Sodium (137-145) mmol/L Potassium (3.5-5.1) mmol/L Chloride (98-107) mmol/L Carbon Dioxide (22-30) mmol/L Anion Gap mmol/L BUN (7-17) mg/dL Creatinine (0.52-1.04) mg/dL Est GFR (CKD-EPI)AfAm (>60 ml/min/1.73 sqM) Est GFR (CKD-EPI)NonAf (>60 ml/min/1.73 sqM) Glucose (74-99) mg/dL Calcium (8.4-10.2) mg/dL Magnesium (1.6-2.3) mg/dL Total Bilirubin (0.2-1.3) mg/dL AST (14-36) U/L ALT (9-52) U/L Alkaline Phosphatase (38-126) U/L Total Creatine Kinase (30-135) U/L CK-MB (CK-2) (0.0-2.4) ng/mL CK-MB (CK-2) Rel Index Troponin I (0.000-0.034) ng/mL Total Protein (6.3-8.2) g/dL Albumin (3.5-5.0) g/dL Amylase (30-110) U/L Lipase (23-300) U/L Urine Color Yellow Urine Appearance Cloudy H (Clear) Urine pH 6.5 (5.0-8.0) Ur Specific Almond >1.050 H (1.001-1.035) Urine Protein Trace H (Negative) Urine Glucose (UA) Negative (Negative) Urine Ketones Negative (Negative) Urine Blood Trace H (Negative) Urine Nitrite Negative (Negative) Urine Bilirubin Negative (Negative) Urine Urobilinogen <2.0 (<2.0) mg/dL Ur Leukocyte Esterase Large H (Negative) Urine RBC 14 H (0-5) /hpf Urine WBC 19 H (0-5) /hpf Ur Squamous Epith Cells 33 H (0-4) /hpf Urine Bacteria Rare H (None) /hpf Urine Mucus Rare H (None) /hpf Disposition Clinical Impression: Fall, Urinary tract infection, Dehydration, Weakness Disposition: ADMITTED IP TO THIS HOSP Condition: Stable Referrals: None,Stated [Primary Care Provider] - 1-2 days
--- NOTE | 2017-09-14 12:11 | CT ---
EXAMINATION TYPE: CT brain rita waller con DATE OF EXAM: 09/14/2017 COMPARISON: 08/26/2017 HISTORY: Multiple falls with injury CT DLP: 1455.7 mGycm Automated exposure control for dose reduction was used. TECHNIQUE: CT scan of the head and cervical spine are performed without contrast. FINDINGS: There is no acute intracranial hemorrhage, mass effect, or midline shift identified. The ventricles and sulci are within normal limits in size. The globes are intact and the visualized sin uses are clear. Cervical spine is visualized in its entirety from C1 through upper thoracic levels and demonstrates s atisfactory alignment without evidence of acute fracture or dislocation. Prevertebral soft tissue ap pears within normal limits. Prominent multilevel cervical spondylosis changes are noted. The C1-C2 ar ticulation is unremarkable. IMPRESSION: 1. There is no acute fracture or dislocation evident in the cervical spine. 2. No acute intracranial hemorrhage, mass effect, or midline shift is seen.
--- NOTE | 2017-09-14 12:11 | CT ---
EXAMINATION TYPE: CT angio chest DATE OF EXAM: 09/14/2017 12:02 PM COMPARISON: NONE HISTORY: Abnormal lab values CT DLP: 217.2 mGycm Automated exposure control for dose reduction was used. CONTRAST: CTA scan of the thorax is performed with IV Contrast, patient injected with 100 mL of Isovue 370, pul monary embolism protocol. . FINDINGS: LUNGS: Biapical pleural thickening noted. Subsegmental changes involving the lung bases are suggestiv e of scar or atelectasis. Findings suggest basilar bronchiectasis. No pneumothorax or pleural effusio n. MEDIASTINUM: There is satisfactory enhancement of the pulmonary artery and its branches, there is no CT evidence for pulmonary embolism. There are no greater than 1 cm hilar or mediastinal lymph nodes. No pericardial effusion is seen. There is aneurysmal dilation ascending aorta measuring 4.4 cm in greatest dimension. Coronary artery calcified cage is noted. Atherosclerotic change of the aorta note d. There is normal enhancement of the visualized pulmonary arteries. No filling defects are seen. OTHER: Hypertrophic change and degenerative changes spine are seen with the moderate compression sup erior endplate deforming the lower thoracic spine which appears chronic. There is approximate 5% retr opulsion. Previous cholecystectomy changes are noted. There is a indeterminate left renal mass by non contrast technique. Small hiatal hernia noted. 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 Cardiomegaly and coronary artery calcification with no diagnostic evidence of pulmonary embolism. 2. Subsegmental changes are most typical of atelectasis rather than infiltrate correlate clinically. 3. Indeterminate left renal lesion by noncontrast technique but likely related to renal cyst.
--- NOTE | 2017-09-14 12:30 | XR ---
EXAMINATION TYPE: XR chest 2V DATE OF EXAM: 09/14/2017 COMPARISON: 08/26/2017 TECHNIQUE: PA and lateral views submitted. HISTORY: Pain post fall FINDINGS: The lungs are clear and there is no pneumothorax, pleural effusion, or focal pneumonia. Atheroscler otic change aorta. Diffuse osteopenia and arthropathy shoulders. No overt failure. Stable compression deformity lower thoracic spine. IMPRESSION: 1. No acute process.
[2017-09-14 13:05] LABS: Appearance,Urine Cloudy (Clear); Bacteria,Urine Rare /hpf; Bilirubin,Urine Negative (Negative); Blood,Urine Trace (Negative); Color,Urine Yellow; Glucose,Urine (UA) Negative (Negative); Ketones,Urine Negative (Negative); Leukocyte Esterase,Urine Large (Negative); Mucus,Urine Rare /hpf; Nitrite,Urine Negative (Negative); PH, Urine 6.5 (5.0-8.0); Protein,Urine Trace (Negative); RBC,Urine 14 /hpf (0-5); Squamous Epithelial Cell,Urine 33 /hpf (0-4); Urobilinogen,Urine <2.0 mg/dL (<2.0); WBC,Urine 19 /hpf (0-5)
[2017-09-14 13:14] LABS: Specific Gravity,Urine >1.050 (1.001-1.035)
[2017-09-14] MEDS ORDERED: cefTRIAXone IN SWFI 1,000 MG/10 ML SYRINGE IVP STA (14:50)
[2017-09-14] MEDS ORDERED: NALOXONE 0.4 MG/ML 1 ML VIAL IV PRN (14:52)
[2017-09-14] MEDS ORDERED: ALPRAZolam 0.5 MG TAB PO PRN (14:54)
[2017-09-14] MEDS ORDERED: MELATONIN 3 MG TABLET PO PRN (15:43)
[2017-09-14] MEDS ORDERED: ONDANSETRON 4 MG/2 ML VIAL IVP PRN (15:43)
[2017-09-14] MEDS ORDERED: ACETAMINOPHEN TAB 325 MG TAB PO PRN (15:43)
[2017-09-14] MEDS ORDERED: DOCUSATE 100 MG CAP PO PRN (15:43)
[2017-09-14 16:15] VITALS: BMI 26.5
[2017-09-14] MEDS: HYDROcodone/APAP 5-325MG 1 EACH TAB PO PRN (16:17)
--- NOTE | 2017-09-14 16:18 | P.HPIM ---
History of Present Illness H&P Date: 09/14/17 Chief Complaint: falls and headache Patient is an 81-year-old female with a past medical history of congestive heart failure, cerebrovascular accident, hyperlipidemia, hypertension , anxiety, and chronic pain who presented to the ER via EMS with complaints of fall and headache. In the ER she underwent an extensive evaluation. On arrival to the ER her vital signs within normal limits. Laboratory analysis was essentially unremarkable other than elevated d-dimer. She subsequently underwent a CTA of the chest which showed no pulmonary embolism and probable renal cyst. She underwent a CT of the cervical spine and head which showed no fracture or dislocation and no acute intracranial process. Her c-collar was then cleared. Chest x-ray was unremarkable. Urinalysis showed a contaminated specimen. There is concern about possible concussion and her not having anyone at home to monitor her for 24 hours and re-injury with frequent falls and therefore she was placed in observation. Of note she was recently hospitalized here from 08/26/2017 through 08/28/2017 for possible TIA versus polypharmacy. At that point in time she underwent an MRI which showed age-related atrophy, echocardiogram that was unremarkable, and carotid Doppler that was unremarkable. She was seen by neurology and an EEG was performed which showed no unusual activity. She was subsequently discharged home at that point in time and they had suggested medication changes and outpatient follow-up. Patient seen and examined at bedside in the emergency department. She is complaining of a headache and a sore neck after her falls. Her son and daughter -in-law are present at bedside. She has been falling frequently at home. She states she's been falling 3-4 times daily. This morning she fell getting out of bed and hit her head on a mattress. She denies any loss of consciousness, lightheadedness, or dizziness. She states that her legs simply gave out from under her and she falls to the ground. Today she smacked her nose and headache. She reports decreased appetite but no significant weight loss. She had some vomiting approximately 2 days ago but no diarrhea. She has decreased energy and has been losing interest in her activities. She denies any chest pain, palpitations, or shortness of breath. She does suffer from chronic constipation. She is concerned about going home as she is afraid she will fall again. She has had home nursing coming out and they have suggested that she needs to go to a halfway. Currently she has been taking MS Contin twice a day, as needed Golden, as needed Xanax, and Valium at night. She had been taken off her trazodone and placed on the Valium several months ago with concern for overmedication. She states that she has to take her Valium 8 hours from her last doses xanax, but has been taking the Xanax 3 times daily and is unable to tell me at what times. It appears that she may be confused on how to take her medications. Her son is very concerned about her returning home. She does live in a senior apartment but does not have anyone checking on her, medication management, or other assistance. They ideally would like her to go to a halfway. She also had a parathyroid approximately 3 years ago due to hyperparathyroidism. Review of Systems Positive: + Weakness, + falls, + headache Pertinent positives and negatives as discussed in HPI, a complete review of systems was performed and all other systems are negative. Past Medical History Past Medical History: Heart Failure, CVA/TIA, Hyperlipidemia, Hypertension Additional Past Medical History / Comment(s): SEPSIS, C DIFF 2009, SHINGLES in 2008, FX TAILBONE,CHF, "leakage of urine", past migraines, varicose veis, hiatal hernia, diverticular disease.anx/depression. Hyperparathyroidism-status post thyroidectomy, hard of hearing History of Any Multi-Drug Resistant Organisms: None Reported Date of last positivie culture/infection: 2009 MDRO Source:: STOOL Past Surgical History: Adenoidectomy, Appendectomy, Cholecystectomy, Heart Catheterization, Hysterectomy, Tonsillectomy Additional Past Surgical History / Comment(s): slick cataracts. (has total 3 sx on lt eye), colonoscopy/egd, heart cath 1996. Parathyroidectomy Past Anesthesia/Blood Transfusion Reactions: No Reported Reaction Past Psychological History: Anxiety, Depression Smoking Status: Never smoker Past Alcohol Use History: None Reported Past Drug Use History: None Reported Additional History: Lives in a intermediate building, frequent falls, has home health care with physical therapy and nursing, has shower chair - Past Family History Mother Family Medical History: Diabetes Mellitus Additional Family Medical History / Comment(s): brain aneurysm Father Family Medical History: Coronary Artery Disease (CAD), Myocardial Infarction (NE ) Son(s) Family Medical History: Cancer Medications and Allergies Home Medications Medication Instructions Recorded Confirmed Type Losartan Potassium 25 mg PO QAM 08/17/14 09/14/17 History Morphine Sulfate ER [Ms Contin] 15 mg PO BID 04/01/17 09/14/17 History ALPRAZolam [Xanax] 0.5 mg PO DAILY PRN 08/26/17 09/14/17 History DULoxetine HCL [Cymbalta] 60 mg PO DAILY 08/26/17 09/14/17 History Furosemide [Lasix] 20 mg PO MOWEFR 08/26/17 09/14/17 History Spironolactone 50 mg PO DAILY 08/26/17 09/14/17 History Atorvastatin [Lipitor] 20 mg PO HS #90 tab 08/28/17 09/14/17 Rx Aspirin EC [Ecotrin Low Dose] 162 mg PO DAILY 09/14/17 09/14/17 History Diazepam [Valium] 5 mg PO HS 09/14/17 09/14/17 History HYDROcodone/APAP 5-325MG [Golden 1 tab PO Q4HR PRN 09/14/17 09/14/17 History 5-325] amLODIPine [Norvasc] 10 mg PO HS 09/14/17 09/14/17 History Allergies Allergy/AdvReac Type Severity Reaction Status Date / Time Sulfa (Sulfonamide Allergy Unknown Verified 09/14/17 11:30 Antibiotics) zolpidem tartrate AdvReac Confusion Verified 09/14/17 11:30 [From Bernard] Physical Exam Osteopathic Statement: *. No significant issues noted on an osteopathic structural exam other than those noted in the History and Physical/Consult. Vitals: Vital Signs Temp Pulse Resp BP Pulse Ox 09/14/17 15:21 98.7 F 89 18 132/68 95 09/14/17 14:21 78 18 126/58 94 L 09/14/17 12:27 76 18 146/75 99 09/14/17 10:55 98 F 79 18 124/59 93 L Intake and Output 09/14/17 09/14/17 09/14/17 06:59 14:59 22:59 Other: Weight 65.771 kg General: non toxic, no distress, appears at stated age, normal weight Derm: no unusual rashes/lesions NO bruises in various spots of her body in different stages of healing, large bruise with edema left elbow. No pain to palpation., warm, dry Head: atraumatic, normocephalic, symmetric Eyes: EOMI, no lid lag, anicteric sclera, pupils equal round reactive to light ENT: Nose and ears atraumatic, no thrush, no pharyngeal erythema Neck: No thyromegaly, no cervical lymphadenopathy, trachea midline, supple Mouth: no lip lesion, his membranes dry Cardiovascular: S1S2 reg, no murmur, positive posterior tibial pulse bilateral, no edema, capillary refill less than 2 seconds Lungs: CTA bilateral, no rhonchi, no rales , no accessory muscle use Abdominal: soft, nontender to palpation, no guarding, no appreciable organomegaly, normal bowel sounds Ext: no gross muscle atrophy, strength 5 out of 5 in bilateral upper extremities , 4 out of 5 bilateral lower extremities, no contractures, Neuro: CN II-XI grossly intact, light touch intact all 4 extremities, finger to nose within normal limits, Psych: Alert, oriented, appropriate affect Results CBC & Chem 7: 09/14/17 11:12 09/14/17 11:12 Labs: Abnormal Lab Results - Last 24 Hours (Table) 09/14/17 09/14/17 09/14/17 Range/Units 11:12 11:12 12:48 D-Dimer 1.02 H (<0.60) mg/L FEU BUN 24 H (7-17) mg/dL Glucose 116 H (74-99) mg/dL ALT 58 H (9-52) U/L Total Protein 6.1 L (6.3-8.2) g/dL Urine Appearance Cloudy H (Clear) Ur Specific [place] >1.050 H (1.001-1.035) Urine Protein Trace H (Negative) Urine Blood Trace H (Negative) Ur Leukocyte Esterase Large H (Negative) Urine RBC 14 H (0-5) /hpf Urine WBC 19 H (0-5) /hpf Ur Squamous Epith Cells 33 H (0-4) /hpf Urine Bacteria Rare H (None) /hpf Urine Mucus Rare H (None) /hpf Thrombosis Risk Factor Assmnt - DVT/VTE Prophylaxis DVT/VTE Prophylaxis: Low risk, early ambulation encouraged Assessment and Plan Assessment: Frequent falls Fall with head injury, concern for concussion -Neuro checks every 4 hours 24 hours -Pain control -Monitor for vomiting, as needed antiemetics -If symptoms worsen consider repeat head CT in a.m. to ensure that there is no small subdural hematoma forming was advanced age and age-related atrophy -Fall precautions -PT/OT -Social work consultation -Discuss with her PCP in a.m. to limit beers medications including opiates, benzos, and SSRI. -Try to help increase home health services, family will discuss with senior apartment regarding if they have medication administration available and cost, Meet with social work to discuss coverage for LTC -Check orthostatic vital signs -Check B12, TSH with reflex T4, and vitamin D levels Chronic pain and anxiety with polypharmacy -Discuss with PCP and attempt to streamline medications -Significant amount of time counseling patient and family and dangers of medicine combination and not knowing when taking when necessary medications. Cervical strain -Continue with nightly Valium -Pain medication as needed -Physical therapy consultation Chronic diastolic congestive heart failure, ejection fraction 55% -Continue with Lasix, Aldactone, Cozaar, not chronically beta marianne Hypertension, controlled -Continue home medications -Check orthostatic vital signs -Follow blood pressures Chronic: Prior stroke Dyslipidemia Surrogate decision-maker: Robert [phone] CODE STATUS: Full DVT prophylaxis: SCDs Discussed with: Patient, family, ED physician Anticipated discharge: Patient will be placed in observation status due to need for continued monitoring sequelae of recent fall including concussion, postconcussive syndrome, and possibility of developing small subdural hematoma. Plan will be to discharge in a.m. if stable. If not place an inpatient status. Anticipated discharge place: Undetermined A total of 75 minutes was spent on the care of this complex patient more than 50 % of the time was spent in counseling and care coordination.
[2017-09-14] MEDS: SODIUM CHLORIDE 0.9% 1,000 ML IV SCH (16:31)
[2017-09-14 18:48] LABS: Appearance,Urine Cloudy (Clear); Bacteria,Urine Occasional /hpf; Bilirubin,Urine Negative (Negative); Blood,Urine Trace (Negative); Color,Urine Yellow; Glucose,Urine (UA) Negative (Negative); Ketones,Urine 1+ (Negative); Leukocyte Esterase,Urine Large (Negative); Mucus,Urine Occasional /hpf; Nitrite,Urine Negative (Negative); Protein,Urine 1+ (Negative); RBC,Urine 6 /hpf (0-5); Squamous Epithelial Cell,Urine 56 /hpf (0-4); WBC,Urine 12 /hpf (0-5)
[2017-09-14 18:51] LABS: Specific Gravity,Urine >1.050 (1.001-1.035)
[2017-09-14] MEDS: MORPHINE SULFATE ER 15 MG TABLET PO SCH (20:22)
[2017-09-14] MEDS ORDERED: DIAZEPAM 5 MG TAB PO SCH (21:00)
[2017-09-14] MEDS ORDERED: amLODIPine 10 MG TAB PO SCH (21:00)
[2017-09-14] MEDS ORDERED: ATORVASTATIN 20 MG TAB PO SCH (21:00)
[2017-09-15] MEDS: HYDROcodone/APAP 5-325MG 1 EACH TAB PO PRN (01:29)
[2017-09-15 07:39] VITALS: RESP 18
[2017-09-15] MEDS: SODIUM CHLORIDE 0.9% 1,000 ML IV SCH (08:44)
[2017-09-15] MEDS: MORPHINE SULFATE ER 15 MG TABLET PO SCH (08:45)
[2017-09-15] MEDS ORDERED: SPIRONOLACTONE 25 MG TAB PO SCH (09:00)
[2017-09-15] MEDS ORDERED: ASPIRIN 81 MG PO SCH (09:00)
[2017-09-15] MEDS ORDERED: DULoxetine HCL 60 MG CAPSULE.DR PO SCH (09:00)
[2017-09-15] MEDS ORDERED: LOSARTAN 25 MG TAB PO SCH (09:00)
[2017-09-15] MEDS ORDERED: FUROSEMIDE 20 MG TAB PO SCH (09:00)
[2017-09-15 11:26] VITALS: BP 135/63; PULSE 85; TEMP 98.5
--- NOTE | 2017-09-15 13:52 | P.DS ---
Providers Date of admission: 09/14/17 14:52 Expected date of discharge: 09/15/17 Attending physician: Guerline Shrestha DO Consults: None Primary care physician: Stated None - Discharge Diagnosis(es) (1) Frequent falls Current Visit: Yes Status: Acute (2) Cervical strain, acute Current Visit: Yes Status: Acute (3) Polypharmacy Current Visit: No Status: Acute (4) Chronic pain Current Visit: Yes Status: Acute (5) Anxiety Current Visit: Yes Status: Acute (6) Chronic diastolic CHF (congestive heart failure) Current Visit: Yes Status: Acute (7) HTN (hypertension) Current Visit: Yes Status: Acute (8) Hyperlipidemia Current Visit: No Status: Acute Hospital Course: Patient is an 81-year-old female with a past medical history of congestive heart failure, cerebrovascular accident, hyperlipidemia, hypertension , anxiety, and chronic pain who presented to the ER via EMS with complaints of fall and headache. In the ER she underwent an extensive evaluation. On arrival to the ER her vital signs within normal limits. Laboratory analysis was essentially unremarkable other than elevated d-dimer. She subsequently underwent a CTA of the chest which showed no pulmonary embolism and probable renal cyst. She underwent a CT of the cervical spine and head which showed no fracture or dislocation and no acute intracranial process. Her c-collar was then cleared. Chest x-ray was unremarkable. Urinalysis showed a contaminated specimen. There is concern about possible concussion and her not having anyone at home to monitor her for 24 hours and re-injury with frequent falls and therefore she was placed in observation. Of note she was recently hospitalized here from 08/26/2017 through 08/28/2017 for possible TIA versus polypharmacy. At that point in time she underwent an MRI which showed age-related atrophy, echocardiogram that was unremarkable, and carotid Doppler that was unremarkable. She was seen by neurology and an EEG was performed which showed no unusual activity. She was subsequently discharged home at that point in time and they had suggested medication changes and outpatient follow-up. She was monitored overnight with neuro checks and had no continued neurologic symptoms. Orthostatic vitals normal. She was seen by physical therapy. Her family were also spoken to by case management and social work. Plan is to send her home with increased home health services. Family is also looking into private pay services and possibly having her stay with her son for a few weeks if not they will stay with her at night. I discussed the base with Dr. Victor and will stop Valium at this time. Patient seen and examined at bedside. She is feeling well today weakness is improved. No chest pain, shortness breath, nausea, or vomiting. She is slightly anxious at home. She is concern that she will fall again. We have provided her with this much assistance at home as we are able. Vital signs reviewed and stable. General: non toxic, no distress, appears at stated age Derm: warm, dry Head: atraumatic, normocephalic, symmetric Eyes: EOMI, no lid lag, anicteric sclera Mouth: no lip lesion, mucus membranes moist Cardiovascular: S1S2 reg, no murmur, positive posterior tibial pulse bilateral, Lungs: CTA bilateral, no rhonchi, no rales , no accessory muscle use Abdominal: soft, nontender to palpation, no guarding, no appreciable organomegaly Ext: no gross muscle atrophy, no edema, no contractures Neuro: CN II-XI grossly intact, no focal neuro deficits Psych: Alert, oriented, appropriate affect A total of 35 minutes of time were spent preparing this complex discharge summary. Pertinent Studies: CTA chest- no pulmonary embolism and probable renal cyst. CT cervical spine and head- no fracture or dislocation and no acute intracranial process. Patient Condition at Discharge: Stable Plan - Discharge Summary Discharge Rx Participant: No New Discharge Prescriptions: New RX: Melatonin 3 mg PO HS #30 tablet Continue RX: Losartan Potassium 25 mg PO QAM RX: Morphine Sulfate ER [Ms Contin] 15 mg PO BID RX: DULoxetine HCL [Cymbalta] 60 mg PO DAILY RX: Spironolactone 50 mg PO DAILY RX: Furosemide [Lasix] 20 mg PO MOWEFR RX: Atorvastatin [Lipitor] 20 mg PO HS #90 tab RX: amLODIPine [Norvasc] 10 mg PO HS RX: HYDROcodone/APAP 5-325MG [[place] 5-325] 1 tab PO Q4HR PRN PRN Reason: Pain RX: Aspirin EC [Ecotrin Low Dose] 162 mg PO DAILY Changed RX: ALPRAZolam [Xanax] 0.5 mg PO TID #0 Discontinued Diazepam [Valium] 5 mg PO HS Discharge Medication List RX: Losartan Potassium 25 mg PO QAM 08/17/14 [History] RX: Morphine Sulfate ER [Ms Contin] 15 mg PO BID 04/01/17 [History] RX: DULoxetine HCL [Cymbalta] 60 mg PO DAILY 08/26/17 [History] RX: Furosemide [Lasix] 20 mg PO MOWEFR 08/26/17 [History] RX: Spironolactone 50 mg PO DAILY 08/26/17 [History] RX: Atorvastatin [Lipitor] 20 mg PO HS #90 tab 08/28/17 [Rx] RX: Aspirin EC [Ecotrin Low Dose] 162 mg PO DAILY 09/14/17 [History] RX: HYDROcodone/APAP 5-325MG [[place] 5-325] 1 tab PO Q4HR PRN 09/14/17 [History] RX: amLODIPine [Norvasc] 10 mg PO HS 09/14/17 [History] RX: ALPRAZolam [Xanax] 0.5 mg PO TID #0 09/15/17 [Rx] RX: Melatonin 3 mg PO HS #30 tablet 09/15/17 [Rx] Follow up Appointment(s)/Referral(s): Roxana Victor MD [STAFF PHYSICIAN] - 1 Week [facility] Visiting Nurse, [NON-STAFF] - Activity/Diet/Wound Care/Special Instructions: regular diet Activity as tolerated Call [facility] if decides to stay at a different location Discharge Disposition: HOME WITH HOME HEALTH SERVICES
== END 2017-09-15 17:21 | disposition home health service (06) ==
LOC: EC 10:53 → 3OBS 14:52
PROVIDERS: ADMIT Internal Medicine; ATTEND Internal Medicine
DX: R29.6 Repeated falls (principal); S16.1XXA Strain of muscle, fascia and tendon at neck level, initial encounter; G89.29 Other chronic pain; F41.9 Anxiety disorder, unspecified; I50.32 Chronic diastolic (congestive) heart failure; I11.0 Hypertensive heart disease with heart failure; E78.5 Hyperlipidemia, unspecified; Z86.73 Personal history of transient ischemic attack (TIA), and cerebral infarction without residual deficits; R51 Headache; R79.89 Other specified abnormal findings of blood chemistry; M54.9 Dorsalgia, unspecified; M54.2 Cervicalgia; E21.5 Disorder of parathyroid gland, unspecified; Z79.899 Other long term (current) drug therapy; Z79.82 Long term (current) use of aspirin; Z79.891 Long term (current) use of opiate analgesic; Z88.2 Allergy status to sulfonamides; Z88.8 Allergy status to other drugs, medicaments and biological substances; G43.909 Migraine, unspecified, not intractable, without status migrainosus; Z86.19 Personal history of other infectious and parasitic diseases; I83.90 Asymptomatic varicose veins of unspecified lower extremity; F32.9 Major depressive disorder, single episode, unspecified; Z90.49 Acquired absence of other specified parts of digestive tract; Z83.3 Family history of diabetes mellitus; Z82.49 Family history of ischemic heart disease and other diseases of the circulatory system; Z80.9 Family history of malignant neoplasm, unspecified; N39.0 Urinary tract infection, site not specified; E86.0 Dehydration; W06.XXXA Fall from bed, initial encounter; Y92.009 Unspecified place in unspecified non-institutional (private) residence as the place of occurrence of the external cause; R63.0 Anorexia; K59.09 Other constipation; H91.90 Unspecified hearing loss, unspecified ear; E89.0 Postprocedural hypothyroidism; E21.3 Hyperparathyroidism, unspecified; S09.90XA Unspecified injury of head, initial encounter
CPT/HCPCS: 99285 ×2; 96374; 36415; 93005; 97162; 85379; 80053; 84443; 82607; 82150; 82550; 82553; 83690; 83735; 84484; 85025; 81001; 82306; 87086; 71046; 72125; 70450; 71275; G0378 ×2; J0696; Q9967

== ENCOUNTER 2017-09-24 08:32 | Inpatient (IN) | payer MEDICARE, BC ==
[2017-09-24] MEDS ORDERED: MORPHINE SULFATE 2 MG/ML SYRINGE IV STA (08:57)
[2017-09-24] MEDS ORDERED: SODIUM CHLORIDE 0.9% 1,000 ML IV ONE ×2 (08:57)
--- NOTE | 2017-09-24 09:01 | ED ---
Fall HPI - General Chief Complaint: Fall Stated Complaint: Fall Time Seen by Provider: 09/24/17 08:46 Source: patient, RN notes reviewed, old records reviewed Mode of arrival: EMS - History of Present Illness Initial Comments: 81-year-old female with history of frequent falls presents emergency department today after she tripped and fell using her walker. She denies loss of consciousness but she reports that she fell forward and she does have some neck pain. Patient states that she is not on any blood thinners. She also complains of right shoulder pain. Patient states that she was on the ground for an unknown period of time. Her son called her this morning and she told them that she was on the ground. 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 She's been admitted in the recent past for TIAs. Patient's son denies any recent altered mental status. She has been alert and oriented and cooperative since EMS arrival. Patient was placed in a c-collar. - Related Data Home Medications Medication Instructions Recorded Confirmed Losartan Potassium 25 mg PO QAM 08/17/14 09/14/17 Morphine Sulfate ER [Ms Contin] 15 mg PO BID 04/01/17 09/14/17 DULoxetine HCL [Cymbalta] 60 mg PO DAILY 08/26/17 09/14/17 Furosemide [Lasix] 20 mg PO MOWEFR 08/26/17 09/14/17 Spironolactone 50 mg PO DAILY 08/26/17 09/14/17 Aspirin EC [Ecotrin Low Dose] 162 mg PO DAILY 09/14/17 09/14/17 HYDROcodone/APAP 5-325MG [Dinosaur 1 tab PO Q4HR PRN 09/14/17 09/14/17 5-325] amLODIPine [Norvasc] 10 mg PO HS 09/14/17 09/14/17 Previous Rx's Medication Instructions Recorded Atorvastatin [Lipitor] 20 mg PO HS #90 tab 08/28/17 ALPRAZolam [Xanax] 0.5 mg PO TID #0 09/15/17 Melatonin 3 mg PO HS #30 tablet 09/15/17 Allergies Allergy/AdvReac Type Severity Reaction Status Date / Time Sulfa (Sulfonamide Allergy Unknown Verified 09/24/17 08:39 Antibiotics) zolpidem tartrate AdvReac Confusion Verified 06/20/18 08:39 [From Bernard] Review of Systems ROS Statement: Those systems with pertinent positive or pertinent negative responses have been documented in the HPI. ROS Other: All systems not noted in ROS Statement are negative. Past Medical History Past Medical History: Heart Failure, CVA/TIA, Hyperlipidemia, Hypertension Additional Past Medical History / Comment(s): SEPSIS, C DIFF 2009, SHINGLES in 2008, FX TAILBONE,CHF, "leakage of urine", past migraines, varicose veis, hiatal hernia, diverticular disease.anx/depression. Hyperparathyroidism-status post thyroidectomy, hard of hearing History of Any Multi-Drug Resistant Organisms: None Reported Date of last positivie culture/infection: 2009 MDRO Source:: STOOL Past Surgical History: Adenoidectomy, Appendectomy, Cholecystectomy, Heart Catheterization, Hysterectomy, Tonsillectomy Additional Past Surgical History / Comment(s): slick cataracts. (has total 3 sx on lt eye), colonoscopy/egd, heart cath 1996. Parathyroidectomy Past Anesthesia/Blood Transfusion Reactions: No Reported Reaction Past Psychological History: Anxiety, Depression Smoking Status: Never smoker Past Alcohol Use History: None Reported Past Drug Use History: None Reported - Past Family History Mother Family Medical History: Diabetes Mellitus Additional Family Medical History / Comment(s): brain aneurysm Father Family Medical History: Coronary Artery Disease (CAD), Myocardial Infarction ([place] ) Son(s) Family Medical History: Cancer Additional Family Medical History / Comment(s): basal cell carcinoma on eyelid General Exam - General Exam Comments Initial Comments: This is a 81-year-old female. Alert and oriented 3. No significant distress. Currently in c-collar. Limitations: no limitations General appearance: alert, in no apparent distress Head exam: Present: atraumatic, normocephalic, normal inspection Eye exam: Present: normal appearance, PERRL, EOMI. Absent: scleral icterus, conjunctival injection, periorbital swelling ENT exam: Present: normal exam, mucous membranes moist Neck exam: Present: normal inspection. Absent: tenderness, meningismus, lymphadenopathy Respiratory exam: Present: normal lung sounds bilaterally. Absent: respiratory distress, wheezes, rales, rhonchi, stridor Cardiovascular Exam: Present: regular rate, normal rhythm, normal heart sounds. Absent: systolic murmur, diastolic murmur, rubs, gallop, clicks GI/Abdominal exam: Present: soft, normal bowel sounds. Absent: distended, tenderness, guarding, rebound, rigid Extremities exam: Present: normal inspection, normal capillary refill. Absent: full ROM, tenderness, pedal edema, joint swelling, calf tenderness Right Shoulder Exam: Present: tenderness (Patient has tenderness over the clavicle. Pain with range of motion of the shoulder. Unable to abduct or flex.). Absent : normal inspection, full ROM, swelling, abrasion Upper Arm exam: Present: normal inspection, full ROM Elbow exam: Present: normal inspection, full ROM Forearm Wrist exam: Present: normal inspection, full ROM Hand Wrist exam: Present: normal inspection, full ROM Vascular: Present: normal capillary refill Back exam: Present: normal inspection Course Vital Signs 09/24/17 08:33 Temperature 97.9 F Pulse Rate 84 Respiratory 16 Rate Blood Pressure 122/58 O2 Sat by Pulse 93 L Oximetry Medical Decision Making - Medical Decision Making 81-year-old female presents emergency department today for a fall. She complained of head and neck pain. No loss of consciousness or blood thinners. CT brain and C-spine was completed. Acute process. C-collar was removed at that time. She was unsure how long she could've been down. We did complete labs checking her CK concern for rhabdo. Patient's EKG was reviewed and normal. We did find an elevated transaminases. Quite significant change from her recent admission. Patient had an ultrasound completed her gallbladder does show evidence of dilated common bile duct. She did have her gallbladder removed. Recommended MRCP. At this time Patient admitted for IV hydration and GI evaluation. Will be admitted to Dr. Roach. Family requests consult to social work due to history of frequent falls. - Lab Data Result diagrams: 09/24/17 09:05 09/24/17 09:05 Lab Results 09/24/17 09/24/17 09/24/17 Range/Units 09:05 09:05 09:05 WBC 7.4 (3.8-10.6) k/uL RBC 4.30 (3.80-5.40) m/uL Hgb 13.2 (11.4-16.0) gm/dL Hct 39.7 (34.0-46.0) % MCV 92.5 (80.0-100.0) fL MCH 30.8 (25.0-35.0) pg MCHC 33.3 (31.0-37.0) g/dL RDW 13.6 (11.5-15.5) % Plt Count 200 (150-450) k/uL Neutrophils % 78 % Lymphocytes % 11 % Monocytes % 9 % Eosinophils % 1 % Basophils % 0 % Neutrophils # 5.8 (1.3-7.7) k/uL Lymphocytes # 0.8 L (1.0-4.8) k/uL Monocytes # 0.7 (0-1.0) k/uL Eosinophils # 0.1 (0-0.7) k/uL Basophils # 0.0 (0-0.2) k/uL Sodium 137 (137-145) mmol/L Potassium 4.1 (3.5-5.1) mmol/L Chloride 99 (98-107) mmol/L Carbon Dioxide 26 (22-30) mmol/L Anion Gap 12 mmol/L BUN 19 H (7-17) mg/dL Creatinine 0.70 (0.52-1.04) mg/dL Est GFR (CKD-EPI)AfAm >90 (>60 ml/min/1.73 sqM) Est GFR (CKD-EPI)NonAf 82 (>60 ml/min/1.73 sqM) Glucose 137 H (74-99) mg/dL Calcium 8.7 (8.4-10.2) mg/dL Total Bilirubin 0.4 (0.2-1.3) mg/dL AST 199 H (14-36) U/L ALT 329 H (9-52) U/L Alkaline Phosphatase 162 H (38-126) U/L Creatine Kinase 161 H (30-135) U/L Troponin I <0.012 (0.000-0.034) ng/mL Total Protein 5.9 L (6.3-8.2) g/dL Albumin 3.6 (3.5-5.0) g/dL Urine Color Urine Appearance (Clear) Urine pH (5.0-8.0) Ur Specific [place] (1.001-1.035) Urine Protein (Negative) Urine Glucose (UA) (Negative) Urine Ketones (Negative) Urine Blood (Negative) Urine Nitrite (Negative) Urine Bilirubin (Negative) Urine Urobilinogen (<2.0) mg/dL Ur Leukocyte Esterase (Negative) Urine RBC (0-5) /hpf Urine WBC (0-5) /hpf Ur Squamous Epith Cells (0-4) /hpf Urine Bacteria (None) /hpf Urine Mucus (None) /hpf 09/24/17 Range/Units 10:20 WBC (3.8-10.6) k/uL RBC (3.80-5.40) m/uL Hgb (11.4-16.0) gm/dL Hct (34.0-46.0) % MCV (80.0-100.0) fL MCH (25.0-35.0) pg MCHC (31.0-37.0) g/dL RDW (11.5-15.5) % Plt Count (150-450) k/uL Neutrophils % % Lymphocytes % % Monocytes % % Eosinophils % % Basophils % % Neutrophils # (1.3-7.7) k/uL Lymphocytes # (1.0-4.8) k/uL Monocytes # (0-1.0) k/uL Eosinophils # (0-0.7) k/uL Basophils # (0-0.2) k/uL Sodium (137-145) mmol/L Potassium (3.5-5.1) mmol/L Chloride (98-107) mmol/L Carbon Dioxide (22-30) mmol/L Anion Gap mmol/L BUN (7-17) mg/dL Creatinine (0.52-1.04) mg/dL Est GFR (CKD-EPI)AfAm (>60 ml/min/1.73 sqM) Est GFR (CKD-EPI)NonAf (>60 ml/min/1.73 sqM) Glucose (74-99) mg/dL Calcium (8.4-10.2) mg/dL Total Bilirubin (0.2-1.3) mg/dL AST (14-36) U/L ALT (9-52) U/L Alkaline Phosphatase (38-126) U/L Creatine Kinase (30-135) U/L Troponin I (0.000-0.034) ng/mL Total Protein (6.3-8.2) g/dL Albumin (3.5-5.0) g/dL Urine Color Yellow Urine Appearance Clear (Clear) Urine pH 5.5 (5.0-8.0) Ur Specific [place] 1.014 (1.001-1.035) Urine Protein Negative (Negative) Urine Glucose (UA) Negative (Negative) Urine Ketones Negative (Negative) Urine Blood Negative (Negative) Urine Nitrite Negative (Negative) Urine Bilirubin Negative (Negative) Urine Urobilinogen <2.0 (<2.0) mg/dL Ur Leukocyte Esterase Moderate H (Negative) Urine RBC 2 (0-5) /hpf Urine WBC 11 H (0-5) /hpf Ur Squamous Epith Cells 5 H (0-4) /hpf Urine Bacteria Rare H (None) /hpf Urine Mucus Rare H (None) /hpf 09/24/17 12:05 EKG shows sinus rhythm nonspecific T-wave abnormality. Abnormal EKG. Insurance any previous front of her pelvis 166. Stressors and 86. QT QTC 38/ 427 ms. No evidence of ST elevation. There is some minor T-wave inversions V5 through V6. - Radiology Data Radiology results: report reviewed Chest x-ray shows no acute process. CT brain shows no acute fracture dislocation. Multilevel tinnitus changes. No apparent acute intracranial hemorrhage mass effect or midline shift. His general nonspecific white matter changes most typical remote S to ischemia. Pelvis x-ray shows no acute fracture. Right upper quadrant ultrasound shows mild intrahepatic biliary ductal dilation secondary sick postcholecystectomy changes. Liver is heterogeneous with fatty protrusion. Diffuse parasellar disease or hepatitis. Correlate clinically. Distal common bile duct is dilated for post cholecystectomy changes measured 1.47 days. Consider MRCP. Disposition Clinical Impression: Frequent falls, Transaminitis, Right shoulder strain Disposition: ADMITTED IP TO THIS HOSP Condition: Stable Is patient prescribed a controlled substance at d/c from ED?: No When asked, does pt state using other controlled substances?: No If prescribed controlled substance>3 days was MAPS reviewed?: No If opioid is for acute pain is fill amount 7 days or less?: No If Rx opioid, was Start Talking consent form obtained?: No Referrals: Fracisco Dumont MD [Primary Care Provider] - 1-2 days Time of Disposition: 12:21
[2017-09-24 09:15] LABS: Basophils % (A) 0 %; Eosinophils # (A) 0.1 k/uL (0-0.7); Eosinophils % (A) 1 %; HCT 39.7 % (34.0-46.0); HGB 13.2 gm/dL (11.4-16.0); Lymphocytes # (A) 0.8 k/uL (1.0-4.8); Lymphocytes % (A) 11 %; MCH 30.8 pg (25.0-35.0); MCHC 33.3 g/dL (31.0-37.0); MCV 92.5 fL (80.0-100.0); Monocytes # (A) 0.7 k/uL (0-1.0); Monocytes % (A) 9 %; Neutrophils # (A) 5.8 k/uL (1.3-7.7); Neutrophils % (A) 78 %; Platelet Count 200 k/uL (150-450); RDW 13.6 % (11.5-15.5); WBC 7.4 k/uL (3.8-10.6)
[2017-09-24 09:47] LABS: ALT 329 U/L (9-52); AST 199 U/L (14-36); Albumin 3.6 g/dL (3.5-5.0); Alkaline Phosphatase 162 U/L (38-126); Anion Gap 12 mmol/L; Blood Urea Nitrogen 19 mg/dL (7-17); Calcium 8.7 mg/dL (8.4-10.2); Carbon Dioxide 26 mmol/L (22-30); Chloride 99 mmol/L (98-107); Creatine Kinase 161 U/L (30-135); Glucose 137 mg/dL (74-99); Potassium 4.1 mmol/L (3.5-5.1); Sodium 137 mmol/L (137-145); Total Bilirubin 0.4 mg/dL (0.2-1.3); Total Protein 5.9 g/dL (6.3-8.2)
--- NOTE | 2017-09-24 10:05 | CT ---
EXAMINATION TYPE: CT brain cspine wo con DATE OF EXAM: 09/24/2017 COMPARISON: 09/14/2017 HISTORY: Fall and Pain CT DLP: Brain (1047.10) and C-spine (300.60) mGycm Automated exposure control for dose reduction was used. TECHNIQUE: CT scan of the head and cervical spine are performed without contrast. FINDINGS: There is no acute intracranial hemorrhage, mass effect, or midline shift identified. The generalized degenerative change seen. Periventricular low-attenuation suggestive of remote microvasc ular ischemia. Cervical spine is visualized in its entirety from C1 through upper thoracic levels and demonstrates s atisfactory alignment without evidence of acute fracture or dislocation. Prevertebral soft tissue ap pears within normal limits. The C1-C2 articulation is unremarkable. There is multilevel degenerativ e disc disease and facet arthropathy with multilevel foraminal encroachment. Multinodular thyroid changes are seen. Minimal anterolisthesis C6 relative to C7. Facet arthropathy n oted. IMPRESSION: 1. There is no acute fracture or dislocation evident in the cervical spine. Multilevel degenerative d isc disease and facet arthropathy noted with suspected multilevel foraminal encroachment. 2. No acute intracranial hemorrhage, mass effect, or midline shift is seen. Degenerative and nonspeci fic white matter changes most typical remote microvascular ischemia.
[2017-09-24 11:02] LABS: Appearance,Urine Clear (Clear); Bacteria,Urine Rare /hpf; Bilirubin,Urine Negative (Negative); Blood,Urine Negative (Negative); Color,Urine Yellow; Glucose,Urine (UA) Negative (Negative); Ketones,Urine Negative (Negative); Leukocyte Esterase,Urine Moderate (Negative); Mucus,Urine Rare /hpf; Nitrite,Urine Negative (Negative); PH, Urine 5.5 (5.0-8.0); Protein,Urine Negative (Negative); RBC,Urine 2 /hpf (0-5); Specific Gravity,Urine 1.014 (1.001-1.035); Squamous Epithelial Cell,Urine 5 /hpf (0-4); Urobilinogen,Urine <2.0 mg/dL (<2.0); WBC,Urine 11 /hpf (0-5)
--- NOTE | 2017-09-24 11:18 | XR ---
EXAMINATION TYPE: XR chest 2V DATE OF EXAM: 09/24/2017 COMPARISON: 09/14/2017 TECHNIQUE: PA and lateral views submitted. HISTORY: Pain FINDINGS: The lungs are clear and there is no pneumothorax, pleural effusion, or focal pneumonia. Atheroscler otic change aorta. Arthropathy shoulders. Atherosclerotic change of the aorta. Chronic appearing comp ression deformity at the thoracolumbar junction. IMPRESSION: 1. No acute process.
--- NOTE | 2017-09-24 11:20 | XR ---
EXAMINATION TYPE: XR shoulder complete RT DATE OF EXAM: 09/24/2017 COMPARISON: NONE HISTORY: Pain post fall TECHNIQUE: Three views are submitted. FINDINGS: The osseous structures are intact. There is no acute fracture or dislocation. Diffuse osteopenia and arthropathy of the shoulder.. IMPRESSION: 1. Arthropathy of the shoulder correlate for chronic rotator cuff disease.
--- NOTE | 2017-09-24 11:22 | XR ---
EXAMINATION TYPE: XR pelvis AP view DATE OF EXAM: 09/24/2017 COMPARISON: NONE HISTORY: Pain The osseous structures are intact and the joint spaces are preserved. No acute fracture is seen. Vi sualized bowel gas pattern is nonspecific. Arthropathy of the hips. IMPRESSION: 1. No acute fracture.
--- NOTE | 2017-09-24 11:36 | US ---
EXAMINATION TYPE: US gallbladder DATE OF EXAM: 09/24/2017 COMPARISON: NONE CLINICAL HISTORY: Pain. Elevated LFT's EXAM MEASUREMENTS: Liver Length: 14.0 cm CBD: 1.4 cm Right Kidney: 10.4 x 3.6 x 4.0 cm Pancreas: Pancreatic duct measures 3mm, body and tail obscured by overlying bowel gas Liver: Slightly heterogeneous, possible mild intrahepatic ductal dilatation Gallbladder: Surgically absent Evidence for sonographic Angelo's sign: No CBD: Dilated for post dylan Right Kidney: wnl IMPRESSION: 1. There is mild intrahepatic biliary ductal dilation likely secondary to postcholecystectomy changes . Liver is heterogeneous which can be seen with fatty infiltration, diffuse hepatocellular disease or hepatitis. Correlate clinically. 2. The distal CBD is dilated for postcholecystectomy changes measuring 1.4 cm. Consider follow-up [facility] P.
[2017-09-24] MEDS ORDERED: KETOROLAC 30 MG/ML 1 ML VIAL IVP PRN (12:22)
[2017-09-24] MEDS ORDERED: IBUPROFEN 400 MG TAB PO PRN (12:22)
[2017-09-24] MEDS ORDERED: NALOXONE 0.4 MG/ML 1 ML VIAL IV PRN (12:22)
[2017-09-24] MEDS ORDERED: oxyCODONE-APAP 5-325MG 1 EACH TAB PO PRN (12:22)
[2017-09-24] MEDS ORDERED: ONDANSETRON 4 MG/2 ML VIAL IVP PRN (12:22)
[2017-09-24] MEDS ORDERED: ACETAMINOPHEN TAB 325 MG TAB PO PRN (12:22)
[2017-09-24] MEDS ORDERED: ALPRAZolam 0.5 MG TAB PO PRN (12:25)
--- NOTE | 2017-09-24 13:20 | P.HPIM ---
History of Present Illness H&P Date: 09/24/17 Chief Complaint: Fall with neck and shoulder pain 81-year-old female with history of essential tremor, Restless leg disorder, frequent falls presents emergency department today after she tripped and fell using her walker. She denies loss of consciousness but she reports that she fell forward and she does have some neck pain. Patient states that she is not on any blood thinners. She also complains of right shoulder pain. Patient states that she was on the ground for an unknown period of time. Her son called her this morning and she told them that she was on the ground. 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 She's been admitted in the recent past for frequent falls and to rule TIA workup thus far has been negative and it appears that polypharmacy related as the patient was on Valium, Xanax and was take morphine and norco for chronic pain. Patient's son denies any recent altered mental status, but states she is becoming increasingly unable to care for herself and report that her appetite is poor and that she had some abdominal pain and nausea on Friday which has since resolved, she has had constipation related to her narcotics in the past. They suspect that she might not be taking some of her meds as prescribed, but are unable to confirm this. She has been alert and oriented and cooperative since EMS arrival. In the ER she had a conference and workup including CT of the head and neck as was negative for any acute intracranial pathology, there was multiple level degenerative disc disease and facet arthropathy with possible multilevel foraminal encroachment. Pelvic x-rays are negative for any acute fracture, shoulder x-ray suggested arthropathy with possible rotator cuff disease. Gallbladder ultrasound suggested intrahepatic biliary dilatation and a heterogeneous liver with a dilated distal CBD. The patient is noted to have a transaminitis ast/alt 199/329 respectively Past Medical History Past Medical History: Heart Failure, CVA/TIA, Hyperlipidemia, Hypertension, Neurologic Disorder (essential tremors and RLS ) Additional Past Medical History / Comment(s): SEPSIS, C DIFF 2009, SHINGLES in 2008, FX TAILBONE,CHF, "leakage of urine", past migraines, varicose veis, hiatal hernia, diverticular disease.anx/depression. Hyperparathyroidism-status post thyroidectomy, hard of hearing History of Any Multi-Drug Resistant Organisms: None Reported Date of last positivie culture/infection: 2009 MDRO Source:: STOOL Past Surgical History: Adenoidectomy, Appendectomy, Cholecystectomy, Heart Catheterization, Hysterectomy, Tonsillectomy Additional Past Surgical History / Comment(s): slick cataracts. (has total 3 sx on lt eye), colonoscopy/egd, heart cath 1996. Parathyroidectomy Past Anesthesia/Blood Transfusion Reactions: No Reported Reaction Past Psychological History: Anxiety, Depression Smoking Status: Never smoker Past Alcohol Use History: None Reported Past Drug Use History: None Reported - Past Family History Mother Family Medical History: Diabetes Mellitus Additional Family Medical History / Comment(s): brain aneurysm Father Family Medical History: Coronary Artery Disease (CAD), Myocardial Infarction ([place] ) Son(s) Family Medical History: Cancer Additional Family Medical History / Comment(s): basal cell carcinoma on eyelid Medications and Allergies Home Medications Medication Instructions Recorded Confirmed Type Losartan Potassium 25 mg PO QAM 08/17/14 09/24/17 History Morphine Sulfate ER [Ms Contin] 15 mg PO BID 04/01/17 09/24/17 History DULoxetine HCL [Cymbalta] 60 mg PO DAILY 08/26/17 09/24/17 History Furosemide [Lasix] 20 mg PO MOWEFR 08/26/17 09/24/17 History Spironolactone 50 mg PO DAILY 08/26/17 09/24/17 History Atorvastatin [Lipitor] 20 mg PO HS #90 tab 08/28/17 09/24/17 Rx Aspirin EC [Ecotrin Low Dose] 162 mg PO DAILY 09/14/17 09/24/17 History HYDROcodone/APAP 5-325MG [Gregory 1 tab PO Q4HR PRN 09/14/17 09/24/17 History 5-325] amLODIPine [Norvasc] 10 mg PO HS 09/14/17 09/24/17 History ALPRAZolam [Xanax] 0.5 mg PO TID PRN 09/24/17 09/24/17 History Cholecalciferol [Vitamin D3] 1,000 unit PO TID 09/24/17 09/24/17 History Diazepam [Valium] 5 mg PO HS 09/24/17 09/24/17 History Allergies Allergy/AdvReac Type Severity Reaction Status Date / Time Sulfa (Sulfonamide Allergy Unknown Verified 06/20/18 12:20 Antibiotics) zolpidem tartrate AdvReac Confusion Verified 09/24/17 12:20 [From Ambien] Physical Exam Vitals: Vital Signs Temp Pulse Resp BP Pulse Ox 09/24/17 12:49 78 16 99/58 95 09/24/17 12:47 80 16 101/52 98 09/24/17 08:33 97.9 F 84 16 122/58 93 L Intake and Output 09/23/17 09/24/17 09/24/17 22:59 06:59 14:59 Other: Weight 65.771 kg Constitutional: No acute distress, conversant, pleasant Eyes: Anicteric sclerae, moist conjunctiva, no lid-lag, PERRLA ENMT: NC/AT,Oropharynx clear, no erythema, exudates Neck:Supple, FROM, no masses, or JVD, No carotid bruits; No thyromegaly Lungs: Clear to auscultation, Clear to percussion, Normal respiratory effort, no accessory muscle use Cardiovascular: Heart regular in rate and rhythm, No murmurs, gallops, or rubs no peripheral edema Abdominal: Soft Nontender, nom distended, no guarding, no rebound or rigidity, Normoactive bowel sounds No hepatomegaly, No splenomegaly, No palpable mass No abdominal wall hernia noted Skin: Normal temperature, tone, texture, turgor, No induration No subcutaneous nodules, No rash, lesions, No ulcers Extremities:No digital cyanosis No clubbing, Pedal pulses intact and symmetrical Radial pulses intact and symmetrical Normal gait and station, No calf tenderness Psychiatric: Alert and oriented to person, place and time, Appropriate affect Intact judgement Neuro: Muscles Strength 5/5 in all 4 extremities, Sensation to light touch grossly present throughout, Cranial nerves II-XII grossly intact. No focal sensory deficits Results CBC & Chem 7: 09/24/17 09:05 09/24/17 09:05 Labs: Abnormal Lab Results - Last 24 Hours (Table) 09/24/17 09/24/17 09/24/17 Range/Units 09:05 09:05 10:20 Lymphocytes # 0.8 L (1.0-4.8) k/uL BUN 19 H (7-17) mg/dL Glucose 137 H (74-99) mg/dL AST 199 H (14-36) U/L ALT 329 H (9-52) U/L Alkaline Phosphatase 162 H (38-126) U/L Creatine Kinase 161 H (30-135) U/L Total Protein 5.9 L (6.3-8.2) g/dL Ur Leukocyte Esterase Moderate H (Negative) Urine WBC 11 H (0-5) /hpf Ur Squamous Epith Cells 5 H (0-4) /hpf Urine Bacteria Rare H (None) /hpf Urine Mucus Rare H (None) /hpf Assessment and Plan Assessment: Surrogate decision-maker: Robert [phone] CODE STATUS: Full DVT prophylaxis: SCDs (1) Frequent falls Current Visit: Yes Status: Acute Code(s): R29.6 - REPEATED FALLS SNOMED Code(s): 599573720 (2) Transaminitis Current Visit: Yes Status: Acute Code(s): R74.0 - NONSPEC ELEV OF LEVELS OF TRANSAMNS & LACTIC ACID DEHYDRGNSE SNOMED Code(s): 238224870 (3) HTN (hypertension) Current Visit: No Status: Acute Code(s): I10 - ESSENTIAL (PRIMARY) HYPERTENSION SNOMED Code(s): 40917099 (4) Polypharmacy Current Visit: No Status: Acute Code(s): Z79.899 - OTHER CARE HOME (CURRENT ) DRUG THERAPY SNOMED Code(s): 324167705 (5) Chronic diastolic CHF (congestive heart failure) Current Visit: No Status: Acute Code(s): I50.32 - CHRONIC DIASTOLIC ( CONGESTIVE) HEART FAILURE SNOMED Code(s): 744167315 (6) Chronic pain Current Visit: Yes Status: Acute Code(s): G89.29 - OTHER CHRONIC PAIN SNOMED Code(s): 29189659 Plan: The patient is admitted anticipated greater than 2 midnight stay after sustaining a mechanical fall and found subsequently to have a transaminitis, with a hip triage a sliver on gallbladder ultrasound with distal common bile duct dilation. Acute hep panel is been ordered we'll consult GI for further recommendations and workup. Patient has been worked up previously for frequent falls and has had to rule out TIA/CVA and has had negative carotid Dopplers, echocardiogram, head CT and MRI. There has been noted cerebral atrophy and family is concerned about possible underlying dementia given patient's increasing inability to care for herself, will plan to consult neurology to evaluate for dementia or parkinsons given h/o essential tremor and RLS. The patient does have chronic pain due to history of T12 compression fracture and is on chronic narcotic therapy with morphine which I will attempt to decrease to 10 mg extended release twice a day. There is a concern for ongoing polypharmacy, both trazodone and Valium have been discontinued over the last 2 months. The patient's chronic medications are reordered, we'll place her on DVT and GI prophylaxis with PPIs and SCDa respectively, will continue to follow her clinical course.
[2017-09-24] MEDS: SODIUM CHLORIDE 0.9% 1,000 ML IV SCH ×2 (15:52→21:27)
[2017-09-24] MEDS: CHOLECALCIFEROL 1,000 UNIT TAB PO SCH ×2 (15:53→21:27)
[2017-09-24] MEDS: FUROSEMIDE 20 MG TAB PO SCH (15:53)
[2017-09-24 17:07] LABS: Glucose,Whole Blood 146 mg/dL (75-99)
--- NOTE | 2017-09-24 19:30 | P.CNNES ---
History of Present Illness Consult date: 09/24/17 History of Present Illness: The patient is an 81-year-old right-handed white female who is admitted to the hospital after a fall at home today. The patient reports that she woke up at 3 AM to use the restroom and she used her walker and suddenly stripped on her legs. She had her cell phone with her and called her son who came over and he called EMS. The patient does live independently. She states she has fallen more than once but cannot recall how often. Shouldn't is on narcotic medication including morphine Solano and Valium. The patient on only complaint now is feeling sore all over from the fall. Again of the head and neck in the emergency room which was unremarkable. The patient was recently hospitalized [facility] in August with episode of confusion. Review of Systems Constitutional: Denies chills, Denies fever Cardiovascular: Denies chest pain, Denies shortness of breath Respiratory: Denies cough Musculoskeletal: Denies myalgias Neurological: Denies numbness, Denies weakness Psychiatric: Denies anxiety, Denies depression Past Medical History Past Medical History: Heart Failure, CVA/TIA, Hyperlipidemia, Hypertension, Neurologic Disorder (essential tremors and RLS ) Additional Past Medical History / Comment(s): SEPSIS, C DIFF 2009, SHINGLES in 2008, FX TAILBONE,CHF, "leakage of urine", past migraines, varicose veis, hiatal hernia, diverticular disease.anx/depression. Hyperparathyroidism-status post thyroidectomy, hard of hearing History of Any Multi-Drug Resistant Organisms: None Reported Date of last positivie culture/infection: 2009 MDRO Source:: STOOL Past Surgical History: Adenoidectomy, Appendectomy, Cholecystectomy, Heart Catheterization, Hysterectomy, Tonsillectomy Additional Past Surgical History / Comment(s): slick cataracts. (has total 3 sx on lt eye), colonoscopy/egd, heart cath 1996. Parathyroidectomy Past Anesthesia/Blood Transfusion Reactions: No Reported Reaction Past Psychological History: Anxiety, Depression Smoking Status: Never smoker Past Alcohol Use History: None Reported Past Drug Use History: None Reported - Past Family History Mother Family Medical History: Diabetes Mellitus Additional Family Medical History / Comment(s): brain aneurysm Father Family Medical History: Coronary Artery Disease (CAD), Myocardial Infarction ([place] ) Son(s) Family Medical History: Cancer Additional Family Medical History / Comment(s): basal cell carcinoma on eyelid Medications and Allergies Home Medications Medication Instructions Recorded Confirmed Type Losartan Potassium 25 mg PO QAM 08/17/14 09/24/17 History Morphine Sulfate ER [Ms Contin] 15 mg PO BID 04/01/17 09/24/17 History DULoxetine HCL [Cymbalta] 60 mg PO DAILY 08/26/17 09/24/17 History Furosemide [Lasix] 20 mg PO MOWEFR 08/26/17 09/24/17 History Spironolactone 50 mg PO DAILY 08/26/17 09/24/17 History Atorvastatin [Lipitor] 20 mg PO HS #90 tab 08/28/17 09/24/17 Rx Aspirin EC [Ecotrin Low Dose] 162 mg PO DAILY 09/14/17 09/24/17 History HYDROcodone/APAP 5-325MG [Solano 1 tab PO Q4HR PRN 09/14/17 09/24/17 History 5-325] amLODIPine [Norvasc] 10 mg PO HS 09/14/17 09/24/17 History ALPRAZolam [Xanax] 0.5 mg PO TID PRN 09/24/17 09/24/17 History Cholecalciferol [Vitamin D3] 1,000 unit PO TID 09/24/17 09/24/17 History Diazepam [Valium] 5 mg PO HS 09/24/17 09/24/17 History Allergies Allergy/AdvReac Type Severity Reaction Status Date / Time Sulfa (Sulfonamide Allergy Unknown Verified 09/24/17 12:20 Antibiotics) zolpidem tartrate AdvReac Confusion Verified 09/24/17 12:20 [From Ambien] Physical Examination - Vital Signs Vital Signs: Vital Signs Temp Pulse Pulse Resp BP BP Pulse Ox 09/24/17 16:31 16 09/24/17 15:29 97.1 F L 87 16 122/53 91 L 09/24/17 13:44 83 16 102/52 92 L 09/24/17 12:49 78 16 99/58 95 09/24/17 12:47 80 16 101/52 98 09/24/17 08:33 97.9 F 84 16 122/58 93 L Intake and Output 09/24/17 09/24/17 09/24/17 06:59 14:59 22:59 Other: Weight 65.771 kg - Constitutional General appearance: average body habitus - EENT EENT: PERRL, vision intact, hearing diminished - Respiratory Respiratory: lungs clear - Cardiovascular Cardiovascular: regular rate - Neurologic Neurologic exam mental status: She was awake alert and oriented. There is no aphasia or dysarthria. Cranial nerves II through XII grossly intact. She did have diminished hearing. Motor examination she moved all 4 extremities equally. Sensory examination intact to light touch Detailed motor examination: full strength in all major muscle groups Motor examination - right side: 5/5: biceps, triceps, wrist flexion, wrist extension, deburrer machine, hip flexors, knee extensors, dorsiflexion, toe extension (EHL) , plantarflexion Motor examination - left side: 5/5: biceps, triceps, wrist flexion, wrist extension, deburrer machine, hip flexors, knee extensors, dorsiflexion, toe extension (EHL) , plantarflexion - Psychiatric Psychiatric: mood/affect appropriate Results - Laboratory Findings CBC and BMP: 09/24/17 09:05 09/24/17 09:05 Abnormal Lab Findings: Abnormal Labs 09/24/17 09/24/17 09/24/17 09:05 09:05 10:20 Lymphocytes # 0.8 L BUN 19 H Glucose 137 H POC Glucose (mg/dL) AST 199 H ALT 329 H Alkaline Phosphatase 162 H Creatine Kinase 161 H Total Protein 5.9 L Ur Leukocyte Esterase Moderate H Urine WBC 11 H Ur Squamous Epith Cells 5 H Urine Bacteria Rare H Urine Mucus Rare H 09/24/17 16:57 Lymphocytes # BUN Glucose POC Glucose (mg/dL) 146 H AST ALT Alkaline Phosphatase Creatine Kinase Total Protein Ur Leukocyte Esterase Urine WBC Ur Squamous Epith Cells Urine Bacteria Urine Mucus Assessment and Plan (1) History of fall Current Visit: Yes Status: Acute SNOMED Code(s): 155664977 (2) Gait disorder Current Visit: Yes Status: Acute SNOMED Code(s): 33481005 Plan: Patient is an 81-year-old woman who presents to the hospital with fall due to tripping on her walker. Her neurologic examination is unremarkable at that at this time. The patient does admit to tremors and she has a history of familial tremor. The patient has some changes in her handwriting and she reports that she does shuffle when she walks. There is minimal rigidity in her left upper extremity and reduced eye blinks. She does have minimal features of Parkinson' s disease and she should be monitored. It does not appear that she needs to be on any medication at this point. Recommend physical therapy to assess patient
[2017-09-24] MEDS ORDERED: DIAZEPAM 5 MG TAB PO SCH (21:00)
[2017-09-24 21:06] LABS: Glucose,Whole Blood 164 mg/dL (75-99)
[2017-09-24] MEDS: ATORVASTATIN 20 MG TAB PO SCH (21:27)
[2017-09-24] MEDS: amLODIPine 10 MG TAB PO SCH (21:27)
[2017-09-25] MEDS: SODIUM CHLORIDE 0.9% 1,000 ML IV SCH ×3 (05:25→22:07)
[2017-09-25 07:20] LABS: Glucose,Whole Blood 149 mg/dL (75-99)
[2017-09-25 07:55] LABS: ALT 217 U/L (9-52); AST 91 U/L (14-36); Albumin 3.5 g/dL (3.5-5.0); Alkaline Phosphatase 141 U/L (38-126); Anion Gap 8 mmol/L; Basophils % (A) 1 %; Blood Urea Nitrogen 13 mg/dL (7-17); Calcium 8.8 mg/dL (8.4-10.2); Carbon Dioxide 28 mmol/L (22-30); Chloride 104 mmol/L (98-107); Eosinophils # (A) 0.1 k/uL (0-0.7); Eosinophils % (A) 2 %; Glucose 138 mg/dL (74-99); HCT 42.6 % (34.0-46.0); Lymphocytes # (A) 0.8 k/uL (1.0-4.8); Lymphocytes % (A) 16 %; MCH 31.1 pg (25.0-35.0); MCHC 32.9 g/dL (31.0-37.0); MCV 94.5 fL (80.0-100.0); Mean Platelet Volume 9.5; Monocytes # (A) 0.5 k/uL (0-1.0); Monocytes % (A) 9 %; Neutrophils # (A) 3.7 k/uL (1.3-7.7); Neutrophils % (A) 71 %; Platelet Count 197 k/uL (150-450); Potassium 4.2 mmol/L (3.5-5.1); RBC 4.51 m/uL (3.80-5.40); RDW 13.3 % (11.5-15.5); Sodium 140 mmol/L (137-145); Total Bilirubin 0.5 mg/dL (0.2-1.3); Total Protein 5.9 g/dL (6.3-8.2); WBC 5.3 k/uL (3.8-10.6)
[2017-09-25] MEDS ORDERED: PANTOPRAZOLE 40 MG/10 ML VIAL IV SCH (09:00)
[2017-09-25] MEDS: POLYETHYLENE GLYCOL 3350 17 GM POWD.PACK PO SCH (10:31)
[2017-09-25] MEDS: SPIRONOLACTONE 25 MG TAB PO SCH (10:31)
[2017-09-25] MEDS: LOSARTAN 25 MG TAB PO SCH (10:31)
[2017-09-25] MEDS: ASPIRIN 81 MG PO SCH (10:31)
[2017-09-25] MEDS: MORPHINE SULFATE ER 15 MG TABLET PO SCH (10:32)
[2017-09-25] MEDS: DULoxetine HCL 60 MG CAPSULE.DR PO SCH (10:32)
[2017-09-25] MEDS: CHOLECALCIFEROL 1,000 UNIT TAB PO SCH ×3 (10:32→22:08)
--- NOTE | 2017-09-25 11:14 | P.CONS ---
History of Present Illness - Reason for Consult Consult date: 09/25/17 Elevated liver enzymes Requesting physician: Tyshawn Perdomo - History of Present Illness 81-year-old female resident at [facility] admitted with falls. Patient states she may have been receiving too many medications at [facility] she's not sure what she was taking possibly some extra Ignacio. Consult requested for elevated liver enzymes. No history of known liver disorders or hepatitis. Ultrasound abdomen mild intrahepatic biliary duct dilatation likely secondary to post-[place] changes. CBD 1.4 cm. Admission total bilirubin 0.4. AST 199. ALT 329. AP 162. Today total bilirubin 0.5. AST 91. ALT 217. AP 141. 09/14/2017 LFTs within normal limits with the exception of mildly elevated ALT 58. LFTs within normal limits August 2017. Denies abdominal pain or fever. Review of Systems Constitutional: Denies fever, chills, sweats, weight gain, or loss. HEENT: Negative for migraines, blurred vision or loss, earaches, drainage, tinnitus, oral mucosal lesions, dysphagia, or odynophagia. CARDIAC: Negative for chest pain, arrhythmias, or palpitation. RESPIRATORY: Negative for shortness of breath, hemoptysis, cough, or sputum production. GI: See HPI for pertinent findings. : Negative for hematuria, urgency, frequency, polyuria, or dysuria. GYNc: Denies possibility of . Negative vaginal discharge. MUSCULOSKELETAL: Negative for muscle aches, swelling, arthritis, and arthralgias. NEUROLOGIC: Negative for stroke or TIA. ENDOCRINE: Negative for thyroid problems. SKIN: Negative for rash or itching. PSYCHIATRIC: Negative history for depression and anxiety Past Medical History Past Medical History: Heart Failure, CVA/TIA, Hyperlipidemia, Hypertension, Neurologic Disorder (essential tremors and RLS ) Additional Past Medical History / Comment(s): SEPSIS, C DIFF 2009, SHINGLES in 2008, FX TAILBONE,CHF, "leakage of urine", past migraines, varicose veis, hiatal hernia, diverticular disease.anx/depression. Hyperparathyroidism-status post thyroidectomy, hard of hearing History of Any Multi-Drug Resistant Organisms: None Reported Year Discovered:: 2010 MDRO Source:: STOOL Past Surgical History: Adenoidectomy, Appendectomy, Cholecystectomy, Heart Catheterization, Hysterectomy, Tonsillectomy Additional Past Surgical History / Comment(s): slick cataracts. (has total 3 sx on lt eye), colonoscopy/egd, heart cath 1996. Parathyroidectomy Past Anesthesia/Blood Transfusion Reactions: No Reported Reaction Past Psychological History: Anxiety, Depression Smoking Status: Never smoker Past Alcohol Use History: None Reported Past Drug Use History: None Reported - Past Family History Mother Family Medical History: Diabetes Mellitus Additional Family Medical History / Comment(s): brain aneurysm Father Family Medical History: Coronary Artery Disease (CAD), Myocardial Infarction ([place] ) Son(s) Family Medical History: Cancer Additional Family Medical History / Comment(s): basal cell carcinoma on eyelid Medications and Allergies Home Medications Medication Instructions Recorded Confirmed Type Losartan Potassium 25 mg PO QAM 08/17/14 09/24/17 History Morphine Sulfate ER [Ms Contin] 15 mg PO BID 04/01/17 09/24/17 History DULoxetine HCL [Cymbalta] 60 mg PO DAILY 08/26/17 09/24/17 History Furosemide [Lasix] 20 mg PO MOWEFR 08/26/17 09/24/17 History Spironolactone 50 mg PO DAILY 08/26/17 09/24/17 History Atorvastatin [Lipitor] 20 mg PO HS #90 tab 08/28/17 09/24/17 Rx Aspirin EC [Ecotrin Low Dose] 162 mg PO DAILY 09/14/17 09/24/17 History HYDROcodone/APAP 5-325MG [Ignacio 1 tab PO Q4HR PRN 09/14/17 09/24/17 History 5-325] amLODIPine [Norvasc] 10 mg PO HS 09/14/17 09/24/17 History ALPRAZolam [Xanax] 0.5 mg PO TID PRN 09/24/17 09/24/17 History Cholecalciferol [Vitamin D3] 1,000 unit PO TID 09/24/17 09/24/17 History Diazepam [Valium] 5 mg PO HS 09/24/17 09/24/17 History Allergies Allergy/AdvReac Type Severity Reaction Status Date / Time Sulfa (Sulfonamide Allergy Unknown Verified 09/24/17 12:20 Antibiotics) zolpidem tartrate AdvReac Confusion Verified 09/24/17 12:20 [From Ambien] Physical Exam Vitals: Vital Signs Temp Pulse Pulse Resp BP BP Pulse Ox 09/25/17 05:48 97.0 F L 65 16 116/57 97 09/24/17 23:35 97.6 F 64 16 107/57 96 09/24/17 21:27 94 L 09/24/17 21:23 84 125/58 90 L 09/24/17 16:31 16 09/24/17 15:29 97.1 F L 87 16 122/53 91 L 09/24/17 13:44 83 16 102/52 92 L 09/24/17 12:49 78 16 99/58 95 09/24/17 12:47 80 16 101/52 98 Intake and Output 09/24/17 09/25/17 09/25/17 22:59 06:59 14:59 Other: Voiding Method Toilet # Voids 1 1 General appearance: The patient is alert, oriented, in no acute distress. HET: Head is normocephalic and atraumatic. Pupils are equal and reactive. Oropharynx is clear without lesions. Neck: Supple without lymphadenopathy. Trachea midline. Heart: S1 S2. Regular rate and rhythm. Lungs: No crackles or wheezes are heard. Abdomen: Soft, nontender, nondistended with bowel sounds. No peritoneal signs. No palpable organomegaly or masses. Extremities: Normal skin color and turgor. No cyanosis, rash, ulceration, clubbing, or edema. Radial and pedal pulses are 2/4 bilaterally. Neurological: No focal deficits. Strength and sensation are grossly intact. Results CBC & Chem 7: 09/25/17 07:19 09/25/17 07:19 Labs: Abnormal Lab Results - Last 24 Hours (Table) 09/24/17 09/24/17 09/24/17 Range/Units 10:20 16:57 20:53 Lymphocytes # (1.0-4.8) k/uL Glucose (74-99) mg/dL POC Glucose (mg/dL) 146 H 164 H (75-99) mg/dL AST (14-36) U/L ALT (9-52) U/L Alkaline Phosphatase (38-126) U/L Total Protein (6.3-8.2) g/dL Ur Leukocyte Esterase Moderate H (Negative) Urine WBC 11 H (0-5) /hpf Ur Squamous Epith Cells 5 H (0-4) /hpf Urine Bacteria Rare H (None) /hpf Urine Mucus Rare H (None) /hpf 09/25/17 09/25/17 09/25/17 Range/Units 07:17 07:19 07:19 Lymphocytes # 0.8 L (1.0-4.8) k/uL Glucose 138 H (74-99) mg/dL POC Glucose (mg/dL) 149 H (75-99) mg/dL AST 91 H (14-36) U/L ALT 217 H (9-52) U/L Alkaline Phosphatase 141 H (38-126) U/L Total Protein 5.9 L (6.3-8.2) g/dL Ur Leukocyte Esterase (Negative) Urine WBC (0-5) /hpf Ur Squamous Epith Cells (0-4) /hpf Urine Bacteria (None) /hpf Urine Mucus (None) /hpf US - abdomen: report reviewed (Dr. Lawrence) Assessment and Plan (1) Transaminitis Narrative/Plan: Suspect drug-induced transaminitis with clinical improvement. Patient is asymptomatic without abdominal pain ultrasound did report a dilated CBD of 1.4 cm as well as some mild intraductal dilatation but this can be seen in a postcholecystectomy state. Transaminitis is felt to be more reflective of drug- induced injury versus biliary obstruction. Current Visit: Yes Status: Acute Code(s): R74.0 - NONSPEC ELEV OF LEVELS OF TRANSAMNS & LACTIC ACID DEHYDRGNSE SNOMED Code(s): 315829193 (2) Frequent falls Current Visit: Yes Status: Acute Code(s): R29.6 - REPEATED FALLS SNOMED Code(s): 652843607 Plan: 1. Considering LFTs are improving no further workup at this time. If patient LFTs worsen we'll consider MRCP imaging for now continue supportive measures. Avoid hepatotoxic medications. Thank you for this kind referral and the opportunity to participate in the care of your patient. This consultation was discussed with Dr. Lawrence. The impression and plan of care have been directed as dictated.
[2017-09-25 12:02] LABS: Glucose,Whole Blood 123 mg/dL (75-99)
--- NOTE | 2017-09-25 13:17 | P.PN ---
Subjective Progress Note Date: 09/25/17 Patient feeling much better today, no complaints no acute events overnight. Discussed ongoing plan of care with the patient's son and medical decision maker Objective - Vital Signs Vital signs: Vital Signs Temp 97.0 F L 09/25/17 05:48 Pulse 65 09/25/17 05:48 Resp 16 09/25/17 05:48 BP 116/57 09/25/17 05:48 Pulse Ox 97 09/25/17 05:48 Intake & Output 09/24/17 09/25/17 09/25/17 18:59 06:59 18:59 Weight 65.771 kg Other: Voiding Method Toilet # Voids 1 - Exam Constitutional: No acute distress, conversant, pleasant Eyes: Anicteric sclerae, moist conjunctiva, no lid-lag, PERRLA ENMT: NC/AT,Oropharynx clear, no erythema, exudates Neck:Supple, FROM, no masses, or JVD, No carotid bruits; No thyromegaly Lungs: Clear to auscultation, Clear to percussion, Normal respiratory effort, no accessory muscle use Cardiovascular: Heart regular in rate and rhythm, No murmurs, gallops, or rubs no peripheral edema Abdominal: Soft Nontender, nom distended, no guarding, no rebound or rigidity, Normoactive bowel sounds No hepatomegaly, No splenomegaly, No palpable mass No abdominal wall hernia noted Skin: Normal temperature, tone, texture, turgor, No induration No subcutaneous nodules, No rash, lesions, No ulcers Extremities:No digital cyanosis No clubbing, Pedal pulses intact and symmetrical Radial pulses intact and symmetrical Normal gait and station, No calf tenderness Psychiatric: Alert and oriented to person, place and time, Appropriate affect Intact judgement Neuro: Muscles Strength 5/5 in all 4 extremities, Sensation to light touch grossly present throughout, Cranial nerves II-XII grossly intact. No focal sensory deficits - Labs CBC & Chem 7: 09/25/17 07:19 09/25/17 07:19 Labs: Abnormal Lab Results - Last 24 Hours (Table) 09/24/17 09/24/17 09/25/17 Range/Units 16:57 20:53 07:17 Lymphocytes # (1.0-4.8) k/uL Glucose (74-99) mg/dL POC Glucose (mg/dL) 146 H 164 H 149 H (75-99) mg/dL AST (14-36) U/L ALT (9-52) U/L Alkaline Phosphatase (38-126) U/L Total Protein (6.3-8.2) g/dL 09/25/17 09/25/17 09/25/17 Range/Units 07:19 07:19 11:59 Lymphocytes # 0.8 L (1.0-4.8) k/uL Glucose 138 H (74-99) mg/dL POC Glucose (mg/dL) 123 H (75-99) mg/dL AST 91 H (14-36) U/L ALT 217 H (9-52) U/L Alkaline Phosphatase 141 H (38-126) U/L Total Protein 5.9 L (6.3-8.2) g/dL Assessment and Plan (1) Frequent falls Narrative/Plan: * Patient has had extensive workup for TIA/CVA previously with negative findings on CAT scan MRI and echocardiogram * Possibly related to some early Parkinson's type features per neurology consultation compounded by ongoing polypharmacy Current Visit: Yes Status: Acute Code(s): R29.6 - REPEATED FALLS SNOMED Code(s): 164147697 (2) Transaminitis Narrative/Plan: * Likely drug-induced per GI consultation recommendation * Seems to be improving Current Visit: Yes Status: Acute Code(s): R74.0 - NONSPEC ELEV OF LEVELS OF TRANSAMNS & LACTIC ACID DEHYDRGNSE SNOMED Code(s): 179175641 (3) HTN (hypertension) Narrative/Plan: * Blood pressure stable controlled * Continue current regimen Current Visit: No Status: Acute Code(s): I10 - ESSENTIAL (PRIMARY) HYPERTENSION SNOMED Code(s): 94513628 (4) Polypharmacy Narrative/Plan: * Valium was discontinued, weaning down on MS Contin Current Visit: No Status: Acute Code(s): Z79.899 - OTHER JAIL (CURRENT ) DRUG THERAPY SNOMED Code(s): 812114468 (5) Chronic diastolic CHF (congestive heart failure) Current Visit: No Status: Acute Code(s): I50.32 - CHRONIC DIASTOLIC ( CONGESTIVE) HEART FAILURE SNOMED Code(s): 574763776 (6) Chronic pain Current Visit: Yes Status: Acute Code(s): G89.29 - OTHER CHRONIC PAIN SNOMED Code(s): 26450478 Plan: * Patient amenable to going to [facility] after her third midnight
[2017-09-25 17:24] LABS: Glucose,Whole Blood 120 mg/dL (75-99)
[2017-09-25 19:12] LABS: Hepatitis A Antibody IgM Non-Reactive (Non-Reactive); Hepatitis B Core IgM Non-Reactive (Non-Reactive)
[2017-09-25 21:30] LABS: Glucose,Whole Blood 188 mg/dL (75-99)
[2017-09-25] MEDS: amLODIPine 10 MG TAB PO SCH (22:07)
[2017-09-25] MEDS: ATORVASTATIN 20 MG TAB PO SCH (22:08)
[2017-09-26 07:26] LABS: Glucose,Whole Blood 141 mg/dL (75-99)
[2017-09-26] MEDS: SODIUM CHLORIDE 0.9% 1,000 ML IV SCH (07:39)
[2017-09-26] MEDS: CHOLECALCIFEROL 1,000 UNIT TAB PO SCH ×3 (08:24→22:06)
[2017-09-26] MEDS: SPIRONOLACTONE 25 MG TAB PO SCH (08:24)
[2017-09-26] MEDS: PANTOPRAZOLE 40 MG TABLET PO SCH (08:24)
[2017-09-26] MEDS: LOSARTAN 25 MG TAB PO SCH (08:25)
[2017-09-26] MEDS: POLYETHYLENE GLYCOL 3350 17 GM POWD.PACK PO SCH ×2 (08:25→08:28)
[2017-09-26] MEDS: FUROSEMIDE 20 MG TAB PO SCH (08:25)
[2017-09-26] MEDS: ASPIRIN 81 MG PO SCH (08:26)
[2017-09-26] MEDS: DULoxetine HCL 60 MG CAPSULE.DR PO SCH (08:26)
[2017-09-26] MEDS: MORPHINE SULFATE ER 15 MG TABLET PO SCH ×2 (08:27→14:02)
--- NOTE | 2017-09-26 09:01 | P.PN ---
Subjective Progress Note Date: 09/26/17 Patient feeling much better today, no complaints no acute events overnight. Discussed ongoing plan of care with the patient's son and medical decision maker , reports that she's been working well with physical therapy. Voiced that she is agreeable to going tomorrow tomorrow Objective - Vital Signs Vital signs: Vital Signs Temp 98.6 F 09/26/17 07:00 Pulse 71 09/26/17 07:00 Resp 17 09/26/17 07:00 BP 117/69 09/26/17 07:00 Pulse Ox 94 L 09/26/17 07:00 Intake & Output 09/25/17 09/26/17 09/26/17 18:59 06:59 18:59 Intake Total 600 Balance 600 Intake: Oral 600 Other: Voiding Method Toilet # Voids 3 5 - Exam Constitutional: No acute distress, conversant, pleasant Eyes: Anicteric sclerae, moist conjunctiva, no lid-lag, PERRLA ENMT: NC/AT,Oropharynx clear, no erythema, exudates Neck:Supple, FROM, no masses, or JVD, No carotid bruits; No thyromegaly Lungs: Clear to auscultation, Clear to percussion, Normal respiratory effort, no accessory muscle use Cardiovascular: Heart regular in rate and rhythm, No murmurs, gallops, or rubs no peripheral edema Abdominal: Soft Nontender, nom distended, no guarding, no rebound or rigidity, Normoactive bowel sounds No hepatomegaly, No splenomegaly, No palpable mass No abdominal wall hernia noted Skin: Normal temperature, tone, texture, turgor, No induration No subcutaneous nodules, No rash, lesions, No ulcers Extremities:No digital cyanosis No clubbing, Pedal pulses intact and symmetrical Radial pulses intact and symmetrical Normal gait and station, No calf tenderness Psychiatric: Alert and oriented to person, place and time, Appropriate affect Intact judgement Neuro: Muscles Strength 5/5 in all 4 extremities, Sensation to light touch grossly present throughout, Cranial nerves II-XII grossly intact. No focal sensory deficits - Labs CBC & Chem 7: 09/25/17 07:19 09/25/17 07:19 Labs: Abnormal Lab Results - Last 24 Hours (Table) 09/25/17 09/25/17 09/25/17 Range/Units 11:59 17:17 21:11 POC Glucose (mg/dL) 123 H 120 H 188 H (75-99) mg/dL 09/26/17 Range/Units 07:17 POC Glucose (mg/dL) 141 H (75-99) mg/dL Assessment and Plan (1) Frequent falls Narrative/Plan: * Patient has had extensive workup for TIA/CVA previously with negative findings on CAT scan MRI and echocardiogram * Possibly related to some early Parkinson's type features per neurology consultation compounded by ongoing polypharmacy Current Visit: Yes Status: Acute Code(s): R29.6 - REPEATED FALLS SNOMED Code(s): 643652434 (2) Transaminitis Narrative/Plan: * Likely drug-induced per GI consultation recommendation * Seems to be improving Current Visit: Yes Status: Acute Code(s): R74.0 - NONSPEC ELEV OF LEVELS OF TRANSAMNS & LACTIC ACID DEHYDRGNSE SNOMED Code(s): 660246549 (3) HTN (hypertension) Narrative/Plan: * Blood pressure stable controlled * Continue current regimen Current Visit: No Status: Acute Code(s): I10 - ESSENTIAL (PRIMARY) HYPERTENSION SNOMED Code(s): 51642145 (4) Polypharmacy Narrative/Plan: * Valium was discontinued, weaning down on MS Contin Current Visit: No Status: Acute Code(s): Z79.899 - OTHER CORRECTION (CURRENT ) DRUG THERAPY SNOMED Code(s): 927072309 (5) Chronic diastolic CHF (congestive heart failure) Current Visit: No Status: Acute Code(s): I50.32 - CHRONIC DIASTOLIC ( CONGESTIVE) HEART FAILURE SNOMED Code(s): 551495810 (6) Chronic pain Current Visit: Yes Status: Acute Code(s): G89.29 - OTHER CHRONIC PAIN SNOMED Code(s): 20878455 Plan: * Patient amenable to going to [facility] after her third midnight
[2017-09-26 11:56] LABS: Glucose,Whole Blood 138 mg/dL (75-99)
[2017-09-26] MEDS: HYDROcodone/APAP 5-325MG 1 EACH TAB PO PRN ×2 (12:52→22:09)
[2017-09-26 17:27] LABS: Glucose,Whole Blood 121 mg/dL (75-99)
[2017-09-26 20:46] LABS: Glucose,Whole Blood 131 mg/dL (75-99)
[2017-09-26 22:06] VITALS: RESP 20
[2017-09-26] MEDS: amLODIPine 10 MG TAB PO SCH (22:06)
[2017-09-26] MEDS: ATORVASTATIN 20 MG TAB PO SCH (22:06)
[2017-09-27] MEDS: HYDROcodone/APAP 5-325MG 1 EACH TAB PO PRN (01:55)
[2017-09-27 06:15] VITALS: BP 114/57; PULSE 69; TEMP 98.6
[2017-09-27 07:05] LABS: Glucose,Whole Blood 129 mg/dL (75-99)
[2017-09-27] MEDS: SPIRONOLACTONE 25 MG TAB PO SCH (08:59)
[2017-09-27] MEDS: POLYETHYLENE GLYCOL 3350 17 GM POWD.PACK PO SCH (08:59)
[2017-09-27] MEDS: DULoxetine HCL 60 MG CAPSULE.DR PO SCH (09:00)
[2017-09-27] MEDS: LOSARTAN 25 MG TAB PO SCH (09:00)
[2017-09-27] MEDS: ASPIRIN 81 MG PO SCH (09:00)
[2017-09-27] MEDS: PANTOPRAZOLE 40 MG TABLET PO SCH (09:00)
[2017-09-27] MEDS: CHOLECALCIFEROL 1,000 UNIT TAB PO SCH (09:00)
[2017-09-27] MEDS: MORPHINE SULFATE ER 15 MG TABLET PO SCH (09:01)
--- NOTE | 2017-09-27 09:47 | P.DS ---
Providers Date of admission: 09/24/17 12:18 Expected date of discharge: 09/27/17 Attending physician: Tyshawn Perdomo MD Consults: 09/24/17 12:54 Consult Physician Routine Consulting Provider: Vera Chauhan Consult Reason/Comments: evaluate for parhinsons , dementia, h/ o essential tremor and RLS Do you want consulting provider notified?: Yes Primary care physician: Fracisco Dumont - Discharge Diagnosis(es) (1) Frequent falls Current Visit: Yes Status: Acute (2) Transaminitis Current Visit: Yes Status: Acute (3) HTN (hypertension) Current Visit: No Status: Acute (4) Polypharmacy Current Visit: No Status: Acute (5) Chronic diastolic CHF (congestive heart failure) Current Visit: No Status: Acute (6) Chronic pain Current Visit: Yes Status: Acute Hospital Course: The patient is a 81-year-old female that that was admitted with a history of frequent falls was had an extensive workup including carotid Dopplers , head CT and MRI and echocardiogram with a likely etiology being polypharmacy and ongoing Parkinson's type features and was found to have acute transaminitis , acute hep panel was ordered and was negative, and GI was consulted to see the patient and suggested that the transaminitis was likely drug induced the patient 's Valium and trazodone were discontinued. And the patient's transaminitis gradually trended down, of note the gallbladder ultrasound was negative for any suggestion of acute cholecystitis. Neurology was consulted to evaluate for dementia and possible Parkinson's given his history of RLS and essential tremors , and he did document that the patient does have early Parkinson's type features but that no medical therapy at this time. In discussion with the patient's family, they elected for placement tomorrow to [facility]. She was subsequently discharged there in stable condition With trazodone and Valium discontinued and her MS Contin extended release decreased to 50 mg by mouth daily. This discharge process took approximately 35 minutes Discharge physical Constitutional: No acute distress, conversant, pleasant Eyes: Anicteric sclerae, moist conjunctiva, no lid-lag, PERRLA ENMT: NC/AT,Oropharynx clear, no erythema, exudates Neck:Supple, FROM, no masses, or JVD, No carotid bruits; No thyromegaly Lungs: Clear to auscultation, Clear to percussion, Normal respiratory effort, no accessory muscle use Cardiovascular: Heart regular in rate and rhythm, No murmurs, gallops, or rubs no peripheral edema Abdominal: Soft Nontender, nom distended, no guarding, no rebound or rigidity, Normoactive bowel sounds No hepatomegaly, No splenomegaly, No palpable mass No abdominal wall hernia noted Skin: Normal temperature, tone, texture, turgor, No induration No subcutaneous nodules, No rash, lesions, No ulcers Extremities:No digital cyanosis No clubbing, Pedal pulses intact and symmetrical Radial pulses intact and symmetrical Psychiatric: Alert and oriented to person, place and time, Appropriate affect Intact judgement Neuro: Muscles Strength 5/5 in all 4 extremities, Sensation to light touch grossly present throughout, Cranial nerves II-XII grossly intact. No focal sensory deficits Patient Condition at Discharge: Good Plan - Discharge Summary Discharge Rx Participant: No New Discharge Prescriptions: New Polyethylene Glycol 3350 [Miralax] 17 gm PO DAILY #30 powd.pack Continue Losartan Potassium 25 mg PO QAM DULoxetine HCL [Cymbalta] 60 mg PO DAILY Spironolactone 50 mg PO DAILY Furosemide [Lasix] 20 mg PO MOWEFR Atorvastatin [Lipitor] 20 mg PO HS #90 tab amLODIPine [Norvasc] 10 mg PO HS HYDROcodone/APAP 5-325MG [[place] 5-325] 1 tab PO Q4HR PRN PRN Reason: Pain Aspirin EC [Ecotrin Low Dose] 162 mg PO DAILY Cholecalciferol [Vitamin D3] 1,000 unit PO TID ALPRAZolam [Xanax] 0.5 mg PO TID PRN PRN Reason: Anxiety Changed Morphine Sulfate ER [Ms Contin] 15 mg PO DAILY #0 Discontinued Diazepam [Valium] 5 mg PO HS Discharge Medication List Losartan Potassium 25 mg PO QAM 08/17/14 [History] DULoxetine HCL [Cymbalta] 60 mg PO DAILY 08/26/17 [History] Furosemide [Lasix] 20 mg PO MOWEFR 08/26/17 [History] Spironolactone 50 mg PO DAILY 08/26/17 [History] Atorvastatin [Lipitor] 20 mg PO HS #90 tab 08/28/17 [Rx] Aspirin EC [Ecotrin Low Dose] 162 mg PO DAILY 09/14/17 [History] HYDROcodone/APAP 5-325MG [[place] 5-325] 1 tab PO Q4HR PRN 09/14/17 [History] amLODIPine [Norvasc] 10 mg PO HS 09/14/17 [History] ALPRAZolam [Xanax] 0.5 mg PO TID PRN 09/24/17 [History] Cholecalciferol [Vitamin D3] 1,000 unit PO TID 09/24/17 [History] Morphine Sulfate ER [Ms Contin] 15 mg PO DAILY #0 09/27/17 [Rx] Polyethylene Glycol 3350 [Miralax] 17 gm PO DAILY #30 powd.pack 09/27/17 [Rx] Follow up Appointment(s)/Referral(s): Fracisco Dumont MD [Primary Care Provider] - 1-2 days Discharge Disposition: TRANSFER TO SNF/ECF
[2017-09-27 11:36] LABS: Glucose,Whole Blood 131 mg/dL (75-99)
== END 2017-09-27 14:06 | DRG 445 ==
LOC: EC 08:32 → 4MS4W 12:18
PROVIDERS: ADMIT Family Medicine; ATTEND Family Medicine
DX: K83.8 Other specified diseases of biliary tract (principal); I50.32 Chronic diastolic (congestive) heart failure; R29.6 Repeated falls; E78.5 Hyperlipidemia, unspecified; F32.9 Major depressive disorder, single episode, unspecified; F41.9 Anxiety disorder, unspecified; G25.0 Essential tremor; G25.81 Restless legs syndrome; G89.29 Other chronic pain; H91.90 Unspecified hearing loss, unspecified ear; I11.0 Hypertensive heart disease with heart failure; S46.911A Strain of unspecified muscle, fascia and tendon at shoulder and upper arm level, right arm, initial encounter; G43.909 Migraine, unspecified, not intractable, without status migrainosus; K44.9 Diaphragmatic hernia without obstruction or gangrene; K57.90 Diverticulosis of intestine, part unspecified, without perforation or abscess without bleeding; R26.9 Unspecified abnormalities of gait and mobility; M54.2 Cervicalgia; R74.0 Nonspecific elevation of levels of transaminase and lactic acid dehydrogenase [LDH]; I83.90 Asymptomatic varicose veins of unspecified lower extremity; Z79.891 Long term (current) use of opiate analgesic; Z79.899 Other long term (current) drug therapy; Z79.82 Long term (current) use of aspirin; Z88.2 Allergy status to sulfonamides; Z98.42 Cataract extraction status, left eye; Z98.41 Cataract extraction status, right eye; Z96.1 Presence of intraocular lens; Z88.8 Allergy status to other drugs, medicaments and biological substances; Z86.73 Personal history of transient ischemic attack (TIA), and cerebral infarction without residual deficits; Z90.710 Acquired absence of both cervix and uterus; Z83.3 Family history of diabetes mellitus; Z82.49 Family history of ischemic heart disease and other diseases of the circulatory system; Z80.8 Family history of malignant neoplasm of other organs or systems; W01.0XXA Fall on same level from slipping, tripping and stumbling without subsequent striking against object, initial encounter; Y92.009 Unspecified place in unspecified non-institutional (private) residence as the place of occurrence of the external cause
CPT/HCPCS: 36415; 70450; 71046; 72125; 72170; 76705; 80053; 80074; 81001; 82550; 84484; 85025; 93005; 96361; 96374; 99285

== ENCOUNTER → 2018-07-16 | Outpatient (CLI) | payer OTHER, MEDICARE, BC ==
[2018-07-16 12:12] LABS: HCT 45.2 % (34.0-46.0); HGB 14.6 gm/dL (11.4-16.0); MCHC 32.3 g/dL (31.0-37.0); Mean Platelet Volume 9.9; Platelet Count 221 k/uL (150-450); RBC 4.71 m/uL (3.80-5.40); RDW 14.1 % (11.5-15.5); WBC 6.1 k/uL (3.8-10.6)
[2018-07-16 18:51] LABS: Parathyroid Hormone Intact 62.9 pg/mL (14.0-72.0)
[2018-07-16 19:45] LABS: Hemoglobin A1C 5.8 % (4.0-6.0)
[2018-07-16 20:19] LABS: Iron Saturation 26.67 (12.00-45.00)
[2018-07-16 20:29] LABS: Vitamin D 25 Hydroxy 55.4 ng/mL (30.0-100.0)
[2018-07-16 22:20] LABS: Albumin 4.4 g/dL (3.80-4.90); Albumin/Globulin Ratio 2.2 (1.60-3.17); Anion Gap 11.8 mmol/L (4.00-12.00); Calcium 9.4 mg/dL (8.7-10.3); Carbon Dioxide 23.2 mmol/L (21.6-31.8); Phosphorus 3.7 mg/dL (2.4-5.1); Potassium 4.4 mmol/L (3.5-5.5); Total Bilirubin 0.7 mg/dL (0.3-1.2); Total Protein 6.4 g/dL (6.2-8.2)
== END | disposition home or self-care (01) ==
LOC: LABWHC1 10:42
PROVIDERS: ATTEND Nurse Practitioner Adult Health
DX: R94.6 Abnormal results of thyroid function studies (principal); E78.2 Mixed hyperlipidemia; E55.9 Vitamin D deficiency, unspecified; I11.9 Hypertensive heart disease without heart failure; F33.9 Major depressive disorder, recurrent, unspecified; R53.1 Weakness; R63.4 Abnormal weight loss; E21.5 Disorder of parathyroid gland, unspecified; R73.9 Hyperglycemia, unspecified
CPT/HCPCS: 36415; 80053; 80061; 82306; 83036; 83540; 83550; 83735; 83970; 84100; 84443; 85027

== ENCOUNTER → 2020-02-24 | Outpatient (CLI) | payer MEDICARE, BC ==
--- NOTE | 2020-02-24 17:01 | US ---
EXAMINATION TYPE: US venous doppler duplex LE RT DATE OF EXAM: 02/24/2020 4:48 PM COMPARISON: NONE CLINICAL HISTORY: R22.41 swelling, M79.661 pain. Right leg pain and swelling SIDE PERFORMED: Right TECHNIQUE: The lower extremity deep venous system is examined utilizing real time linear array sonog jayden with graded compression, doppler sonography and color-flow sonography. VESSELS IMAGED: Common Femoral Vein Deep Femoral Vein Greater Saphenous Vein * Femoral Vein Popliteal Vein Small Saphenous Vein * Proximal Calf Veins (* superficial vessels) Right Leg: Negative for DVT IMPRESSION: No evidence of deep vein thrombosis in the right leg.
--- NOTE | 2020-02-24 17:46 | XR ---
EXAMINATION TYPE: XR tibia fibula RT DATE OF EXAM: 02/24/2020 COMPARISON: NONE HISTORY: Pain and swelling TECHNIQUE: 4 views FINDINGS: The ankle joint is anatomic. There is minor spurring at the knee joint. I see no fracture n or dislocation. There is plantar calcaneal spurring. IMPRESSION: No acute abnormality of the right tibia and fibula.
--- NOTE | 2020-02-24 17:48 | XR ---
EXAMINATION TYPE: XR femur RT DATE OF EXAM: 02/24/2020 COMPARISON: NONE HISTORY: Pain and swelling TECHNIQUE: 4 views FINDINGS: There is some spurring at the hip joint. I see no fracture nor dislocation. There is minor spurring at the medial femoral and tibial condyles. There is slight narrowing of the hip joint space. There is no evidence of a fracture. IMPRESSION: No acute abnormality of the right femur. Osteoarthritic changes.
== END | disposition home or self-care (01) ==
LOC: RADUSWWP 16:25
PROVIDERS: ATTEND Family Medicine
DX: M19.071 Primary osteoarthritis, right ankle and foot (principal)

== ENCOUNTER → 2020-07-14 | Outpatient (CLI) | payer MEDICARE, BC ==
[2020-07-15 02:44] LABS: African American GFR (CKD) 48.1 (60.0-200.0); Albumin 4.5 g/dL (3.80-4.90); Albumin/Globulin Ratio 2.25 (1.60-3.17); Anion Gap 10.8 mmol/L (4.00-12.00); BUN/Creat Ratio 23.33 Ratio (12.00-20.00); Calcium 9.8 mg/dL (8.7-10.3); Carbon Dioxide 25.2 mmol/L (21.6-31.8); Chol/HDL Ratio 5.39; LDL Cholesterol,Calculated 174.2 mg/dL (0.0-131.0); Non-African American GFR(CKD) 41.5 (60.0-200.0); Potassium 5.6 mmol/L (3.5-5.5); Total Bilirubin 0.5 mg/dL (0.2-1.2); Total Protein 6.5 g/dL (6.2-8.2); VLDL Calculation 71.8 mg/dL (5.00-40.00)
== END | disposition home or self-care (01) ==
LOC: LABWHC1 10:44
PROVIDERS: ATTEND Nurse Practitioner Adult Health
DX: E78.5 Hyperlipidemia, unspecified (principal); F33.9 Major depressive disorder, recurrent, unspecified; I10 Essential (primary) hypertension
CPT/HCPCS: 36415; 80053; 80061; 82306

== ENCOUNTER → 2021-01-29 | Outpatient (CLI) | payer MEDICARE, BC ==
[2021-01-29 09:41] LABS: Ionized Calcium 5.1 mg/dL (4.5-5.3)
[2021-01-29 10:45] LABS: Basophils # (A) 0.1 k/uL (0-0.2); Basophils % (A) 1 %; Eosinophils # (A) 0.2 k/uL (0-0.7); Eosinophils % (A) 4 %; HCT 43.9 % (34.0-46.0); HGB 14.3 gm/dL (11.4-16.0); Lymphocytes # (A) 1.1 k/uL (1.0-4.8); Lymphocytes % (A) 24 %; MCH 30.8 pg (25.0-35.0); MCHC 32.6 g/dL (31.0-37.0); MCV 94.5 fL (80.0-100.0); Mean Platelet Volume 11.7; Monocytes # (A) 0.3 k/uL (0-1.0); Monocytes % (A) 6 %; Neutrophils # (A) 2.8 k/uL (1.3-7.7); Neutrophils % (A) 63 %; Platelet Count 231 k/uL (150-450); RBC 4.64 m/uL (3.80-5.40); RDW 14.8 % (11.5-15.5); WBC 4.5 k/uL (3.8-10.6)
[2021-01-29 13:07] LABS: Large Platelets Present
[2021-01-29 16:17] LABS: African American GFR (CKD) 60.7 (60.0-200.0); Anion Gap 12.3 mmol/L (4.00-12.00); BUN/Creat Ratio 21.14 Ratio (12.00-20.00); Blood Urea Nitrogen 20.8 mg/dL (9.0-27.0); Calcium 9.4 mg/dL (8.7-10.3); Carbon Dioxide 25.3 mmol/L (21.6-31.8); Non-African American GFR(CKD) 52.3 (60.0-200.0); Potassium 5.1 mmol/L (3.5-5.5)
[2021-01-29 16:44] LABS: Protein, Total 6.2 g/dL (6.2-8.2)
[2021-01-30 15:15] LABS: Albumin 3.58 g/dL (3.80-4.90); Gamma Globulin 0.66 g/dL (0.70-1.50)
[2021-01-31 22:15] LABS: LD Isoenzymes 1 22 % (19-38); LD Isoenzymes 2 32 % (30-43); LD Isoenzymes 3 23 % (16-26); LD Isoenzymes 4 11 % (3-12); LD Isoenzymes 5 12 % (3-14); Lactacte Dehydrogenase(LD) ISO 150 U/L (120-250)
== END | disposition home or self-care (01) ==
LOC: LABWHC1 08:23
PROVIDERS: ATTEND Nurse Practitioner Adult Health
DX: E83.52 Hypercalcemia (principal)
CPT/HCPCS: 36415; 80048; 82306; 82330; 83615; 83625; 83970; 84165; 84166; 85025

== ENCOUNTER → 2021-05-16 | Outpatient (CLI) | payer MEDICARE, BC ==
[2021-05-16 18:35] LABS: BUN/Creat Ratio 19.98 Ratio (12.00-20.00); Blood Urea Nitrogen 18.1 mg/dL (9.0-27.0); Calcium 8.7 mg/dL (8.7-10.3); Carbon Dioxide 21.5 mmol/L (20.0-27.5); Chloride 106 mmol/L (96-109); Chol/HDL Ratio 4.25 Ratio; Glucose 145 mg/dL (70-110); Non-African American GFR(CKD) 57.8 (60.0-200.0); Potassium 4.1 mmol/L (3.5-5.5); Sodium 141 mmol/L (135-145)
== END | disposition home or self-care (01) ==
LOC: LABWHC1 09:54
PROVIDERS: ATTEND Internal Medicine
DX: E11.9 Type 2 diabetes mellitus without complications (principal)
CPT/HCPCS: 36415; 80048; 80061; 83036

== ENCOUNTER → 2021-10-31 | Outpatient (CLI) | payer MEDICARE, BC ==
--- NOTE | 2021-10-31 12:39 | CT ---
EXAMINATION TYPE: CT brain wo con CT DLP: fall mGycm, Automated exposure control for dose reduction was used. DATE OF EXAM: 10/31/2021 12:33 PM COMPARISON: CT brain C-spine 09/24/2017 CLINICAL INDICATION:Female, 85 years old with history of W19.XXAXXXA Unspecified fall, 1068.3 TECHNIQUE: Brain: Multiple axial CT images of the brain were obtained without IV contrast. Coronal and sagittal reformats reviewed. FINDINGS: Brain: Extra-axial spaces: No abnormal extra-axial fluid collections. Ventricular system: Dilatation in proportion to cerebral atrophy. Cerebral parenchyma: No acute intraparenchymal hemorrhage or mass effect. The acevedo-white junction is well differentiated. Scattered hypoattenuating areas are seen within the white matter. Cerebral vol ume loss. Cerebellum: Unremarkable. Mass effect: No evidence of midline shift. Intracranial vasculature: Atherosclerotic calcifications of the intracranial vessels. Soft tissues: Normal. Calvarium/osseous structures: No depressed skull fracture. Paranasal sinuses and mastoid air cells: Clear Visualized orbits: Bilateral aphakia IMPRESSION: 1. No acute intracranial process. 2. Nonspecific white matter changes, likely secondary to chronic small vessel ischemic disease.
--- NOTE | 2021-10-31 12:49 | CT ---
EXAMINATION TYPE: CT cervical spine wo con CT DLP: 1068.3 mGycm, Automated exposure control for dose reduction was used. DATE OF EXAM: 10/31/2021 12:33 PM COMPARISON: CT brain cervical spine 09/24/2017. CLINICAL INDICATION:Female, 85 years old with history of W19.XXAXXXA Unspecified fall; PHH, fall TECHNIQUE: Axial CT images from the skull base to the inferior aspect of T2 we obtained without intra venous contrast. Coronal and sagittal reformatted images were also reviewed. FINDINGS: Fracture: None. Osseous structures: Unremarkable Vertebral alignment: Stable minimal anterolisthesis of C6 on C7. Spinal canal/Neural Foramina: Multilevel facet arthropathy. Ankylosis of the right C4-C6 facet joints . The central spinal canal is patent. Neck soft tissues: Prevertebral soft tissues are within normal limits. Other: The airway is patent. The lung apices are clear. Stable 1.2 cm hypodense nodule within the rig ht thyroid lobe. IMPRESSION: 1. No evidence of cervical spine fracture. 2. Mild cervical spondylosis.
--- NOTE | 2021-10-31 12:54 | CT ---
EXAMINATION TYPE: CT lumbar spine wo con DATE OF EXAM: 10/31/2021 12:33 PM COMPARISON: HISTORY: Pain CT DLP: 479.2 mGycm Automated exposure control for dose reduction was used. Unenhanced CT of the lumbar spine was performed. Bone and soft tissue window settings are submitted as well as coronal and sagittal reconstructions. Simple left renal cyst. Parapelvic renal cysts on th e right suspected. Atherosclerotic change aorta. L1-L2: There is a moderate superior endplate compression fracture T12. There is approximately 5% retr opulsion. Mild effacement of the thecal sac. L2-L3: Circumferential disc bulging greater laterally to the left L3-L4: Diffuse broad-based disc bulging with facet arthropathy and ligamentum flavum. Bilateral david inal encroachment and evidence of canal stenosis. L4-L5: T1 and grade 1 anterolisthesis with marked facet arthropathy and diffuse disc bulging. Hypertr ophic change of the facets and ligamentum flavum results in severe canal stenosis and bilateral david inal arch. L5-S1: Degenerative disc disease with vacuum disc compatible severe degenerative changes. Marked face t arthropathy results in bilateral foraminal encroachment. Borderline to mild central stenosis. Repor t telephoned to referring clinician 12:52 PM 10/31/2021. IMPRESSION: 1. Moderate superior endplate compression fracture T12 with approximately 5% retropulsion. Recommend MRI. 2. Severe degenerative disc disease L5-S1. Multilevel facet arthropathy, disc bulging and canal steno sis most marked at L3-4 and L4-L5.
== END | disposition home or self-care (01) ==
LOC: RADCTMAIN 11:58
PROVIDERS: ATTEND Internal Medicine
DX: W19.XXXA Unspecified fall, initial encounter (principal); S22.080D Wedge compression fracture of T11-T12 vertebra, subsequent encounter for fracture with routine healing; M47.812 Spondylosis without myelopathy or radiculopathy, cervical region; I67.82 Cerebral ischemia; M51.27 Other intervertebral disc displacement, lumbosacral region; M48.061 Spinal stenosis, lumbar region without neurogenic claudication
CPT/HCPCS: 70450; 72125; 72131

== ENCOUNTER → 2023-08-05 | Outpatient (CLI) | payer MEDICARE, BC ==
--- NOTE | 2023-08-05 11:14 | XR ---
EXAMINATION TYPE: XR chest 2V DATE OF EXAM: 08/05/2023 COMPARISON: NONE TECHNIQUE: PA and lateral views submitted. HISTORY: Dyspnea FINDINGS: The lungs are clear and there is no pneumothorax, pleural effusion, or focal pneumonia. Heart size normal and no overt failure. Osseous structures demonstrate hypertrophic and degenerative changes of the spine. Atherosclerotic changes with ectasia of the aorta. Underlying COPD. Diffuse osteopenia and arthropathy of the shoulders. Chronic-appearing compression of 4 a lower thoracic spine. Surgical cl ips in the abdomen. IMPRESSION: 1. No acute process.
[2023-08-05 11:58] LABS: Ionized Calcium 5.2 mg/dL (4.5-5.3)
[2023-08-05 12:10] LABS: ALT 21 U/L (4-34); AST 23 U/L (14-36); African American GFR (CKD) 75 (>60 ml/min/1.73 sqM); Albumin 4.1 g/dL (3.5-5.0); Albumin/Globulin Ratio 1.6; Alkaline Phosphatase 117 U/L (38-126); Anion Gap 6 mmol/L; Blood Urea Nitrogen 18 mg/dL (7-17); Calcium 9.6 mg/dL (8.4-10.2); Carbon Dioxide 27 mmol/L (22-30); Chloride 105 mmol/L (98-107); Globulin 2.5 g/dL; Glucose 123 mg/dL (74-99); Magnesium 1.9 mg/dL (1.6-2.3); Non-African American GFR(CKD) 65 (>60 ml/min/1.73 sqM); Potassium 4.6 mmol/L (3.5-5.1); Sodium 138 mmol/L (137-145); Total Bilirubin 0.9 mg/dL (0.2-1.3); Total Protein 6.6 g/dL (6.3-8.2)
[2023-08-05 14:51] LABS: Basophils # (A) 0.05 X 10*3/uL (0.00-0.10); Basophils % (A) 0.6 %; Eosinophils # (A) 0.17 X 10*3/uL (0.04-0.35); Eosinophils % (A) 2.2 %; HCT 45.5 % (37.2-46.3); HGB 14.6 g/dL (12.0-15.0); Lymphocytes # (A) 1.63 X 10*3/uL (0.90-5.00); Lymphocytes % (A) 21.1 %; MCH 30.8 pg (27.0-32.0); MCHC 32.1 g/dL (32.0-37.0); Mean Platelet Volume 12.7 FL (9.5-12.2); Monocytes # (A) 0.72 X 10*3/uL (0.20-1.00); Monocytes % (A) 9.3 %; NRBC Per 100 WBC 0 X 10*3/uL (0.00-0.01); Neutrophils # (A) 5.12 X 10*3/uL (1.80-7.70); Neutrophils % (A) 66.3 %; Platelet Count 267 X 10*3/uL (140-440); RBC 4.74 X 10*6/uL (4.10-5.20); RDW 14.3 % (11.5-14.5); WBC 7.73 X 10*3/uL (4.50-10.00)
[2023-08-05 21:36] LABS: Chol/HDL Ratio 3.26 Ratio; LDL Cholesterol,Calculated 111.1 mg/dL (0.0-131.0)
== END | disposition home or self-care (01) ==
LOC: LABWHC1 10:21
PROVIDERS: ATTEND Internal Medicine
DX: E11.9 Type 2 diabetes mellitus without complications (principal); E83.52 Hypercalcemia; R06.09 Other forms of dyspnea
CPT/HCPCS: 36415; 71046; 80053; 80061; 82330; 83036; 83735; 84443; 85025

== ENCOUNTER → 2023-08-19 | Outpatient (CLI) | payer MEDICARE, BC ==
[~2023-08-19] MED LIST: REGADENOSON 0.4 MG/5 ML SYRINGE IV PRN
--- NOTE | 2023-08-19 11:26 | CA ---
Lexiscan Nuclear Stress Test Report Name: Nori Dawson Exam Date: 08/19/2023 10:01 Exam Location: [place] Stress Ht (in): 62 Wt (lb): 145 BSA: 1.67 Ordering Phys: Morgan Vang DO Referring Phys: Morgan Vang DO Technologist: Nhan Harris Age: 87 Gender: F : 1935 Procedure CPT: Indications: R06.09 Other forms of dyspnea ICD-10 Codes: Patient History: DIFFICULTY IN BREATHING, PALPITATIONS, HTN, DIABETES, TIA, FAMILY HX OF HEART DISEASE, PRIOR HEART CATH, Medications: Meds past 24 hrs: Pretest Chest Pain: STRESS TEST Lexiscan Protocol Exercise Duration (min:sec): 02:[address] Depressions (mm): Angina Score: Staples Score: Resting HR (bpm): 63 Peak HR (bpm): 80 Resting BP (mmHg): 138 / 70 Peak BP (mmHg): 139 / 64 MPHR: 133 Target HR: 113 % MPHR: 60 METS: 1.0 Total Dose: Peak Dose: Atropine: Double Product: 75032 BP Response: Stress Termination: INFUSION COMPLETE Stress Symptoms: NO SYMPTOMS Stress Summary: ECG ANALYSIS Resting ECG: Sinus rhythm. Interventricular conduction delay. No arrhythmias. Nonspecific ST-T abnormality. Stress ECG: No ECG changes from baseline with Lexiscan infusion. CONCLUSIONS No ECG evidence of ischemia with Lexiscan infusion. Nuclear test results to follow. Dr. Nory Lora MD (Electronically Signed) Final Date: 19 Aug 2023 11:25
--- NOTE | 2023-08-19 14:56 | NM ---
EXAMINATION TYPE: NM stress lexiscan cardiolite DATE OF EXAM: 08/19/2023 COMPARISON: NONE CLINICAL INDICATION: Female, 87 years old with history of R06.09 OTHER FORMS OF DYSPNEA; TECHNIQUE: After the intravenous administration of 9.9 mCi Tc 99m Sestamibi - Cardiolite resting SPE CT images acquired 45 minutes post injection. The patient received 0.4mg Lexiscan, 25.3 mCi Tc 99m Sestamibi - Stress images obtained [address] injection FINDINGS: Review of stress and rest SPECT images demonstrates a moderate-sized area of fixed perfusion defect a long the anteroseptal wall which is larger on rest suggesting attenuation artifact. No distinct rever sibility is seen. Gated analysis shows normal wall motion with an estimated left ventricular ejectio n fraction of 64 %. TID is calculated at 0.55, within normal limits. IMPRESSION: Suspect attenuation artifact and less likely old infarct along the anteroseptal wall. Clinically kody elate. No scintigraphic evidence for reversible ischemia.
== END | disposition home or self-care (01) ==
LOC: RADNMMAIN 08:10
PROVIDERS: ATTEND Internal Medicine
DX: R06.09 Other forms of dyspnea (principal)
CPT/HCPCS: 93017; 78452; A9500; J2785